=== PATIENT | female | born 1980 | race Caucasian/White ===

== ENCOUNTER → 2022-06-24 14:36 | Outpatient (BNVA) | payer MEDICAID, SELFPAY | PROVIDERS: Visit Provider Podiatrist Foot & Ankle Surgery | DX: M72.2 Plantar fascial fibromatosis (principal); E11.9 Type 2 diabetes mellitus without complications; Z79.84 Long term (current) use of oral hypoglycemic drugs | CPT/HCPCS: 73630; 99203 ==

== ENCOUNTER → 2022-09-27 13:04 | Outpatient (BNVA) | payer MEDICAID, SELFPAY | PROVIDERS: Visit Provider Podiatrist Foot & Ankle Surgery | DX: M72.2 Plantar fascial fibromatosis (principal); E11.9 Type 2 diabetes mellitus without complications; Z79.84 Long term (current) use of oral hypoglycemic drugs | CPT/HCPCS: 99213 ==

== ENCOUNTER → 2022-11-15 13:07 | Outpatient (BNVA) | payer MEDICAID, SELFPAY | PROVIDERS: Visit Provider Podiatrist Foot & Ankle Surgery | DX: M72.2 Plantar fascial fibromatosis (principal); E11.9 Type 2 diabetes mellitus without complications; Z79.84 Long term (current) use of oral hypoglycemic drugs | CPT/HCPCS: 99213 ==

== ENCOUNTER → 2022-11-17 08:21 | Outpatient (BNVA) | payer MEDICAID, SELFPAY | PROVIDERS: PCP Family Medicine; Referring Provider Family Medicine; Visit Provider Specialist | DX: R20.0 Anesthesia of skin (principal); R20.2 Paresthesia of skin | CPT/HCPCS: 95910; 95912 ==

== ENCOUNTER → 2022-12-27 15:25 | Outpatient (BNVA) | payer MEDICAID, SELFPAY | PROVIDERS: PCP Family Medicine; Visit Provider Podiatrist Foot & Ankle Surgery | DX: M72.2 Plantar fascial fibromatosis (principal) | CPT/HCPCS: 99213 ==

== ENCOUNTER 2023-02-09 17:12 | Emergency (ER) | payer MEDICAID, SELFPAY ==
--- NOTE | 2023-02-09 17:58 | XRR_ITS ---
PROCEDURE INFORMATION: Exam: XR Chest Exam date and time: 02/09/2023 6:44 PM Age: 42 years old Clinical indication: Fever TECHNIQUE: Imaging protocol: Radiologic exam of the chest. Views: 1 view. COMPARISON: No relevant prior studies available. FINDINGS: Lungs: Mild left basilar opacity or infiltrate. No consolidation. Pleural spaces: Unremarkable. No pleural effusion. No pneumothorax. Heart/Mediastinum: Unremarkable. No cardiomegaly. Bones/joints: Visualized osseous structures show no acute abnormality. XR/XR chest 1V portable [id number] IMPRESSION: Mild left basilar opacity or infiltrate suggesting mild left basilar pneumonia, for follow-up with treatment.
[2023-02-09 18:09] VITALS: BP 112/69; PULSE 75; RESP 18; TEMP 37; O2SAT 100; BMI 42.4
[2023-02-09 20:50] LABS: SARS Covid-2 Antigen positive (Negative)
[2023-02-09 20:54] VITALS: O2SAT 100
--- NOTE | 2023-02-09 20:59 | W.ED.COVID ---
HPI - COVID General: Chief Complaint: COVID symptoms Stated Complaint: fever, Exposed to covid Time Seen by Provider: 02/09/23 20:56 Source: patient Mode of arrival: ambulatory Limitations: no limitations History of Present Illness: 42-year-old female states that she is exposed someone with COVID and then yesterday started having some low-grade fevers chills and slight cough she had minimal shortness of breath she wears 2 L of oxygen at baseline since 2019 she is 100% on her 2 L she is in no distress here denies any pain. COVID 19 common symptoms: positive fever(s), chills, non-productive cough and dyspnea; negative body aches, headache(s), throat pain, nausea, vomiting or diarrhea COVID 19 other sytmptoms: negative chest pain COVID Results: SARS-CoV-2 Antigen (Rapid) positive (Negative) 02/09/23 20:20 Review of Systems Const: Reports: fever(s) and chills; Denies: body aches or change in appetite Eyes: Denies: blurry vision or eye discomfort ENMT: Denies: throat pain or dental pain Card: Denies: chest pain Resp: Reports: dyspnea and non-productive cough GI: Denies: abdominal pain, nausea, vomiting or diarrhea : Denies: dysuria Musc: Denies: neck pain or back pain Skin/Breast: Denies: rash Neuro: Denies: headache(s) Psych: Denies: depression Yony/Lymph: Denies: easy bruising All/Imm: Denies: urticaria PFSH ED PFSH: Social History Smoking and tobacco status: never smoked Alcohol intake: never Substance/Drug Use: never Physical Exam Const: COMMON NORMALS: no acute distress, patient oriented x3 and healthy appearing HENMT: COMMON NORMALS: normocephalic and atraumatic HEAD & SCALP: normocephalic and atraumatic Eye: COMMON NORMALS: conjunctivae normal CONJUNCTIVA: Yes conjunctivae normal Neck/C-Spine: COMMON NORMALS: supple Chest: COMMONS NORMALS: normal inspection of the chest and normal palpation of entire chest wall Resp: COMMON NORMALS: normal respiratory effort, No retractions, No use of accessory muscles and clear to auscultation bilaterally AUSCULTATION: clear to auscultation bilaterally Cardio: COMMON NORMALS: regular rate, regular rhythm and No murmurs present (Cardio) RATE: regular rate RHYTHM: regular rhythm GI: INSPECTION: Yes normal to inspection Extremity: COMMON NORMALS: normal to inspection and full ROM Neuro: COMMON NORMALS: patient oriented x3, moves all extremities and no focal motor deficits Psych: COMMON NORMALS: mental status grossly normal, Normal thought process present and cooperative THOUGHT PROCESS: Normal thought process present Skin: COMMON NORMALS: no rashes or lesions noted and no wounds GENERAL SKIN EXAM: no rashes or lesions noted Course Vital Signs: Vital signs: Vital Signs Temperature 98.6 F 02/09/23 18:09 Pulse Rate 75 02/09/23 18:09 Respiratory Rate 18 02/09/23 18:09 Blood Pressure 112/69 02/09/23 18:09 Pulse Oximetry 100 02/09/23 20:54 Oxygen Delivery Me thod Nasal Cannula 02/09/23 20:54 Oxygen Flow Rate 2 02/09/23 20:54 MDM - COVID Medical Decision Making Patient presents here with COVID-like symptoms and has had exposure her symptoms have been 1 day she is well-appearing here 100% on her baseline 2 L x-ray shows no acute abnormalities compared to baseline we will start her on Paxil did give her Decadron here. Lab Data Radiology Impressions Chest X-Ray 02/09/23 17:58 IMPRESSION: Mild left basilar opacity or infiltrate suggesting mild left basilar pneumonia, for follow-up with treatment. Laboratory Results SARS-CoV-2 Ag (Rapid) positive (Negative) 02/09/23 20:20 SARS-CoV-2 Antigen (Rapid) positive (Negative) 02/09/23 20:20 Discharge Plan Discharge Patient Disposition: Home Clinical Impression: COVID-19 Condition: Stable Prescriptions: New Paxlovid (EUA) 300 mg (150 mg x 2)-100 mg tablets,dose pack See Rx Instructions .ROUTE .COMPLEX Qty: 30 0RF Rx Instructions: take TWO 150 mg tablets of nirmatrelvir with ONE 100 mg tablet of ritonavir twice daily for 5 days No Action pregabalin 150 mg capsule PO levothyroxine [Euthyrox] 75 mcg tablet PO duloxetine 60 mg capsule,delayed release(DR/EC) PO prazosin 2 mg capsule PO lisinopril 10 mg tablet PO metformin 500 mg tablet PO furosemide 40 mg tablet PO phentermine 37.5 mg capsule PO doxycycline hyclate 100 mg capsule PO buprenorphine-naloxone 8-2 mg tablet, sublingual sublingual polyethylene glycol 3350 17 gram/dose powder PO albuterol sulfate [ProAir HFA] 90 mcg/actuation HFA aerosol inhaler inhalation methocarbamol 500 mg tablet PO cetirizine 10 mg tablet PO clotrimazole 1 % cream topical meloxicam 15 mg tablet See Rx Instructions .ROUTE .COMPLEX Qty: 30 0RF Dose Instruction: TAKE 1 TABLET BY MOUTH ONCE DAILY WITH FOOD FOR PLANTAR FASCIITIS Rx Instructions: TAKE 1 TABLET BY MOUTH ONCE DAILY WITH FOOD FOR PLANTAR FASCIITIS Discharge Orders: Discharge ED (Routine); Ordered 02/09/23 Ordered By: Melida Garcia Referrals: Fabrizio Nazario MD [Primary Care Provider] - 1-3 days Discharge Diet: Advance as tolerated Discharge Activity: Resume usual activity Patient Instructions: COVID-19 (Coronavirus Disease 2019) (ED) Coding Level of Care Code ED Inshore [employer] Officer for Luz Najera
[2023-02-09] MEDS: dexamethasone 10 mg/mL INJ IM (21:09)
[2023-02-09 21:14] VITALS: RESP 18
== END 2023-02-09 21:15 | disposition home or self-care (01) ==
PROVIDERS: Emergency Provider Emergency Medicine; PCP Family Medicine
DX: U07.1 COVID-19 (principal); Z79.84 Long term (current) use of oral hypoglycemic drugs
CPT/HCPCS: 71045; 87426; 96372; 99284; J1100

== ENCOUNTER → 2023-04-19 11:00 | Outpatient (BNVA) | payer MEDICAID, SELFPAY | PROVIDERS: PCP Family Medicine; Visit Provider Internal Medicine | DX: R20.0 Anesthesia of skin (principal); R20.2 Paresthesia of skin; M25.50 Pain in unspecified joint; R70.0 Elevated erythrocyte sedimentation rate | CPT/HCPCS: 36415; 73080; 73120; 80053; 82306; 82550; 82784; 83516; 84443; 85025; 85651; 86140; 86160; 86162; 86235; 86255; 86376; 86704; 86803; 87340; 87522; 99204 ==

== ENCOUNTER 2023-04-20 10:00 | Outpatient (CLI) | payer MEDICAID, SELFPAY ==
--- NOTE | 2023-04-20 10:13 | P.DIET_ITS ---
Reason for Visit: 31921 E66.01 Person Interviewed: Patient Medical History, Labs and Background: Recovering addict, been through a lot the past 10 yrs. Dealing with depression and anxiety. Height: 5 ft 5 in Weight: 249 lb BMI: 41.5 kg/m2 UBW: PT would like to be around 200 lbs, then 150 lbs. IBW: 125 lbs. Weight History: Dena said she has always been overweight. Her addiction journey took her down to 159 lbs, but she said she wasn't healthy at that weight. Concerns and Goals: She doesn't know what to do with her cravings, or how to lose weight. Sleep Hygiene: There is a sleep study scheduled for her. Right now she wakes up during the night and has nightmares. Physical Activity: Currently she is doing 10-15 minutes/day walking and on her glider. However she has plantar fascitis among other things affecting her feet and joints, making exercise difficult at times. GI Symptoms: Constipation Feeding Issues: Edentulous Other Feeding Issues: She lost all of her teeth so eats only soft foods. When asked why she skips meals she said she only eats when she is hungry. Also she said right now she craves ice cream and eats too much of it. At home she has a stove top, but the oven had mice in it and it doesn't work. Her budget is pretty tight. Food Allergies and Sensitivities: NKA 24 Hour Recall: Breakfast Time: 7:30 2 waffles, 2 sausage patties and glass milk Snack Time: Lunch Time: Nothing Snack Time: Dinner Time: 5:00 pm whole grain bread, honey ham, lb cheese and ibarra/onion, plus tostitos, plus milk Snack Time: 9:00 pm 1-2 cups ice cream Eating Out: Rarely eats out - cannot afford it. Soda vs Milk vs Water: She drinks 4-5 20 bottles of water, milk 1-2x/day and Dr. Martinez 0.5 can/day Additional Comments: Dena talked a lot about her addictions and the effect they have had on her life and her children. She mentioned some pills that were suppressing her appetite that she can no longer get or afford. It is hard to tell if she wants to make changes or wants to take a pill. However, she is bothered by her weight. Recommendations: Assessment: Dena is a recovering addict who says she cannot control her hunger and craves ice cream and Dr. Stratton. She described herself as Pre-Diabetes. On the internet she has found lots of information and mentioned being interested in the Mediterranean Diet. She knew nothing about a Diabetic Diet and though she wanted to meet with a Dietitian, she wasn't sure what they do! SHe would also like to lose weight. Diagnosis: Excessive energy intake r/t habits and patterns AEB BMI of 41.5 kg/m2. Intervention: We discussed eating regularly instead of just when she feels like it. I gave her handouts regarding a 1600 kcal diabetic diet with meal plans as a guideline to managing her CHO's so that she got some with protein and fat, consi stently throughout the day, so that she wouldn't be starving and binge on ice cream and so that she wouldn't have hypoglycemic episodes. Since she is already trying to walk outside or on her glider for 5-15 minutes/day, we talked about when she can trying 5-15 minutes 2x/day and she agreed. We or a snack, then talked about cutting back on Dr. Stratton and first eating a meal, then cutting back on ice cream. Because of her sleep issues I gave her a handout about the importance of sleep and recommended caffeine only in the morning and drinking milk or water or apple juice with her evening meds. Also we discussed no screen time 30-60 minutes before bed. Lastly we talked about wt loss happening slowly with change of habits, and that an initial 5-10% or 12-25 lbs would be a goal to start with. Monitoring and Evaluation: We discussed a second appointment or that she could use my contact information on the sheet where we wrote some goals. I also suggested circling or highlighting the handouts I gave her on the Diabetic Diet, meal plans, increasing fiber to combat constipation and sleep hygeine. Coding Level of Care Code Nutrition/Individ/Init 60 min Time Spent (min) 60
== END 2023-04-20 10:01 | disposition home or self-care (01) ==
LOC: DIET 10:01
PROVIDERS: PCP Family Medicine; Visit Provider Family Medicine
DX: Z71.3 Dietary counseling and surveillance (principal); E66.01 Morbid (severe) obesity due to excess calories; Z68.41 Body mass index [BMI] 40.0-44.9, adult
CPT/HCPCS: 97802

== ENCOUNTER → 2023-05-15 14:00 | Outpatient (BNVA) | payer MEDICAID, SELFPAY | PROVIDERS: PCP Family Medicine; Visit Provider Internal Medicine | DX: R76.8 Other specified abnormal immunological findings in serum (principal); R20.0 Anesthesia of skin; R20.2 Paresthesia of skin; M72.2 Plantar fascial fibromatosis; R70.0 Elevated erythrocyte sedimentation rate; R74.8 Abnormal levels of other serum enzymes; M25.521 Pain in right elbow | CPT/HCPCS: 36415; 82550; 84100; 85651; 86140; 99214 ==

== ENCOUNTER → 2023-05-22 14:59 | Outpatient (BNVA) | payer MEDICAID, SELFPAY | PROVIDERS: PCP Family Medicine; Visit Provider Psychiatry & Neurology Psychiatry | DX: F11.20 Opioid dependence, uncomplicated (principal); Z79.899 Other long term (current) drug therapy | CPT/HCPCS: 80307 ==

== ENCOUNTER → 2023-05-31 10:07 | Outpatient (BNVA) | payer MEDICAID, SELFPAY | PROVIDERS: PCP Family Medicine; Visit Provider Internal Medicine Pulmonary Disease | DX: R06.02 Shortness of breath (principal); Z87.891 Personal history of nicotine dependence | CPT/HCPCS: 99204 ==

== ENCOUNTER → 2023-06-05 13:16 | Outpatient (BNVA) | payer MEDICAID, SELFPAY | PROVIDERS: PCP Family Medicine; Visit Provider Psychiatry & Neurology Psychiatry | DX: Z79.899 Other long term (current) drug therapy (principal); F11.20 Opioid dependence, uncomplicated | CPT/HCPCS: 80307 ==

== ENCOUNTER → 2023-06-19 13:14 | Outpatient (BNVA) | payer MEDICAID, SELFPAY | PROVIDERS: PCP Family Medicine; Referring Provider Internal Medicine; Visit Provider Specialist | DX: M25.521 Pain in right elbow (principal); M25.522 Pain in left elbow | CPT/HCPCS: 73080; 99204 ==

== ENCOUNTER 2023-06-21 13:18 | Outpatient (CLI) | payer MEDICAID, SELFPAY ==
[2023-06-21 13:39] VITALS: PULSE 83; RESP 18; O2SAT 98
[2023-06-21] MEDS: albuterol 2.5 mg/3 mL Neb INHALATION (13:39)
[2023-06-21 13:43] VITALS: PULSE 85
== END 2023-06-21 13:19 | disposition home or self-care (01) ==
PROVIDERS: PCP Family Medicine; Visit Provider Internal Medicine Pulmonary Disease
DX: R06.02 Shortness of breath (principal)
CPT/HCPCS: 94060; 94618; 94726; 94729; J7613

== ENCOUNTER → 2023-07-03 13:27 | Outpatient (BNVA) | payer MEDICAID, SELFPAY | PROVIDERS: PCP Family Medicine; Visit Provider Psychiatry & Neurology Psychiatry | DX: Z79.899 Other long term (current) drug therapy (principal); F11.20 Opioid dependence, uncomplicated; F10.21 Alcohol dependence, in remission; F15.21 Other stimulant dependence, in remission; F43.12 Post-traumatic stress disorder, chronic; F33.2 Major depressive disorder, recurrent severe without psychotic features | CPT/HCPCS: 80307 ==

== ENCOUNTER → 2023-07-05 10:38 | Outpatient (BNVA) | payer MEDICAID, SELFPAY | PROVIDERS: PCP Family Medicine; Visit Provider Internal Medicine | DX: R76.8 Other specified abnormal immunological findings in serum (principal); R20.0 Anesthesia of skin; R20.2 Paresthesia of skin; E11.9 Type 2 diabetes mellitus without complications; M79.671 Pain in right foot; M79.672 Pain in left foot; M25.50 Pain in unspecified joint; R70.0 Elevated erythrocyte sedimentation rate; R74.8 Abnormal levels of other serum enzymes; M25.529 Pain in unspecified elbow | CPT/HCPCS: 36415; 82550; 82784; 83516; 85651; 86003; 86008; 86140; 86618; 86666; 86757; 99214 ==

== ENCOUNTER 2023-07-17 13:46 | Outpatient (CLI) | payer MEDICAID, SELFPAY ==
--- NOTE | 2023-07-17 13:45 | MR_ITS ---
WS: [id number] EXAMINATION: MR elbow RT wo con* [id number] ORDER DATE: 07/17/2023 1:54 PM COMPARISON: Radiograph 06/19/2023 and 04/19/2023 HISTORY: elbow pain CONTRAST: None. TECHNIQUE: Axial T1, axial T2 fat sat, coronal T1, coronal proton density fat sat, coronal STIR, sagi ttal proton density fat sat, and axial fat sat 3D performed. FINDINGS: Normal anatomic alignment. 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 No significant joint effusion. Distal triceps insertion is normal in appearance at the olecranon. Well-circumscribed bony ossicle along the dorsal olecranon unchanged compared to the prior radiograph likely represents an un united chronic fracture versus secondary ossification center. No edema in this location. Chondromalacia involving the capitellum and trochlea. Small amount of edema with degenerative change involving the capitellum at the radial articulation. No evidence of avascular necrosis. Radial head and neck are normal in appearance. Distal humerus is otherwise normal in appearance. Smal l amount of fluid and edema deep to the common extensor tendon and superficial to the lateral collate ral ligament. Small chronic appearing bony avulsion at the origin of the lateral collateral ligament at this location. No associated bony edema. Small chronic appearing ununited fracture of the coronoid process. No edema in this location. Normal common flexor tendon origin. IMPRESSION: 1. Small bony avulsion at the lateral humeral epicondyle at the lateral collateral ligament origin. Small amount of fluid and edema interposed between the common extensor tendon and lateral collateral ligament. 2. Small amount of fragmentation and edema involving the dorsal capitellum extending to the articula r surface. 3. Chronic appearing ununited tiny avulsion of the coronoid process. 4. Stable appearing tiny avulsion or secondary ossification center along the dorsal olecranon is unc hanged in appearance. No edema in this location. 5. No other acute findings.
== END 2023-07-17 13:47 | disposition home or self-care (01) ==
PROVIDERS: PCP Family Medicine; Visit Provider Specialist
DX: M25.521 Pain in right elbow (principal)
CPT/HCPCS: 73221

== ENCOUNTER 2023-08-08 20:00 | Outpatient (CLI) | payer MEDICAID, SELFPAY | END 2023-08-08 20:01 | disposition home or self-care (01) | LOC: SLEEP 08-09 05:48 | PROVIDERS: PCP Family Medicine; Visit Provider Family Medicine | DX: G47.10 Hypersomnia, unspecified (principal); G47.33 Obstructive sleep apnea (adult) (pediatric) | CPT/HCPCS: 95811 ==

== ENCOUNTER → 2023-08-09 13:55 | Outpatient (BNVA) | payer MEDICAID, SELFPAY | PROVIDERS: PCP Family Medicine; Visit Provider Specialist | DX: S52.024A Nondisplaced fracture of olecranon process without intraarticular extension of right ulna, initial encounter for closed fracture; X58.XXXA Exposure to other specified factors, initial encounter | CPT/HCPCS: 99213 ==

== ENCOUNTER → 2023-08-21 14:14 | Outpatient (BNVA) | payer MEDICAID, SELFPAY | PROVIDERS: PCP Family Medicine; Visit Provider Psychiatry & Neurology Psychiatry | DX: Z79.899 Other long term (current) drug therapy (principal); F11.20 Opioid dependence, uncomplicated; F10.21 Alcohol dependence, in remission; F15.21 Other stimulant dependence, in remission; F43.12 Post-traumatic stress disorder, chronic; F33.2 Major depressive disorder, recurrent severe without psychotic features | CPT/HCPCS: 80307 ==

== ENCOUNTER → 2023-09-07 13:49 | Outpatient (BNVA) | payer MEDICAID, SELFPAY | PROVIDERS: PCP Family Medicine; Visit Provider Internal Medicine Pulmonary Disease | DX: J44.89 Other specified chronic obstructive pulmonary disease (principal); Z87.891 Personal history of nicotine dependence; E66.01 Morbid (severe) obesity due to excess calories; J45.909 Unspecified asthma, uncomplicated; F15.11 Other stimulant abuse, in remission; Z68.41 Body mass index [BMI] 40.0-44.9, adult | CPT/HCPCS: 36415; 82785; 86003; 99214 ==

== ENCOUNTER → 2023-11-13 15:34 | Outpatient (BNVA) | payer MEDICAID, SELFPAY | PROVIDERS: PCP Family Medicine; Visit Provider Psychiatry & Neurology Psychiatry | DX: F11.20 Opioid dependence, uncomplicated (principal); F10.21 Alcohol dependence, in remission; F15.21 Other stimulant dependence, in remission; Z79.899 Other long term (current) drug therapy; F33.2 Major depressive disorder, recurrent severe without psychotic features; F43.12 Post-traumatic stress disorder, chronic | CPT/HCPCS: 80307 ==

== ENCOUNTER → 2024-02-12 16:05 | Outpatient (BNVA) | payer MEDICAID, SELFPAY | PROVIDERS: PCP Family Medicine; Visit Provider Psychiatry & Neurology Psychiatry | DX: F11.20 Opioid dependence, uncomplicated (principal); Z79.899 Other long term (current) drug therapy; F15.21 Other stimulant dependence, in remission; F10.21 Alcohol dependence, in remission | CPT/HCPCS: 80307 ==

== ENCOUNTER 2024-03-05 13:07 | Outpatient (CLI) | payer MEDICAID, SELFPAY ==
--- NOTE | 2024-03-05 13:10 | MM_ITS ---
WS: [id number] DIAGNOSTIC BILATERAL DIGITAL BREAST TOMOSYNTHESIS MAMMOGRAPHY WITH CAD LEFT breast ultrasound, limited HISTORY: Palpable mass LEFT breast. COMPARISON: None available. TECHNIQUE: Bilateral craniocaudad, mediolateral oblique, and mediolateral views are submitted with to mosynthesis and SM. Spot compression LEFT CC and MLO. Computer aided detection utilized. Breast composition: There are scattered areas of fibroglandular density. No new mass or abnormality n oted in the LEFT breast at the site of the palpable marker near 9:00. There are benign calcifications in each breast. LEFT breast ultrasound, limited. Ultrasound upper inner quadrant LEFT breast at the site of the palpable abnormality. No mass identifi ed. There is no distortion or shadowing. MM/[place] [id number] IMPRESSION: BI-RADS: 2-Benign FOLLOW UP: 1 Year Follow-up
== END 2024-03-05 13:08 | disposition home or self-care (01) ==
LOC: RAD 13:07
PROVIDERS: PCP Family Medicine; Visit Provider Family Medicine
DX: N63.20 Unspecified lump in the left breast, unspecified quadrant (principal); Z12.31 Encounter for screening mammogram for malignant neoplasm of breast; R92.323 Mammographic fibroglandular density, bilateral breasts; R92.1 Mammographic calcification found on diagnostic imaging of breast
CPT/HCPCS: 76642; 77062; G0279

== ENCOUNTER → 2024-04-23 08:32 | Outpatient (BNVA) | payer MEDICAID, SELFPAY | PROVIDERS: PCP Family Medicine; Visit Provider Podiatrist Foot & Ankle Surgery | DX: M72.2 Plantar fascial fibromatosis (principal); E11.9 Type 2 diabetes mellitus without complications; Z79.84 Long term (current) use of oral hypoglycemic drugs | CPT/HCPCS: 99213 ==

== ENCOUNTER 2024-04-30 12:44 | Outpatient (CLI) | payer MEDICAID, SELFPAY ==
[2024-04-30 12:55] VITALS: BMI 40.9
--- NOTE | 2024-04-30 12:59 | ECG_ITS ---
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
[2024-04-30 13:41] VITALS: BP 122/64; PULSE 62
== END 2024-04-30 12:45 | disposition home or self-care (01) ==
LOC: CDL 12:45
PROVIDERS: PCP Nurse Practitioner Family; Visit Provider Nurse Practitioner Family
DX: R07.9 Chest pain, unspecified (principal); R06.02 Shortness of breath
CPT/HCPCS: 93017

== ENCOUNTER → 2024-05-14 16:17 | Outpatient (BNVA) | payer OTHER, SELFPAY | PROVIDERS: PCP Nurse Practitioner Family; Visit Provider Psychiatry & Neurology Psychiatry | DX: Z79.899 Other long term (current) drug therapy (principal); F11.20 Opioid dependence, uncomplicated; F15.21 Other stimulant dependence, in remission; F10.21 Alcohol dependence, in remission | CPT/HCPCS: 80307 ==

== ENCOUNTER → 2024-06-27 14:09 | Outpatient (BNVA) | payer MEDICAID, SELFPAY | PROVIDERS: PCP Nurse Practitioner Family; Visit Provider Internal Medicine Cardiovascular Disease | DX: R07.89 Other chest pain (principal); R06.02 Shortness of breath; E11.9 Type 2 diabetes mellitus without complications; F33.2 Major depressive disorder, recurrent severe without psychotic features; F15.21 Other stimulant dependence, in remission; I10 Essential (primary) hypertension; Z87.891 Personal history of nicotine dependence | CPT/HCPCS: 99204 ==

== ENCOUNTER 2024-07-23 09:59 | Outpatient (CLI) | payer MEDICAID, SELFPAY ==
[2024-07-23 10:21] VITALS: BMI 41.4
--- NOTE | 2024-07-23 10:22 | NMCV_ITS ---
NM briana perf SPECT r/s* [id number] Dena Grider Age: 44 Gender: F : 1980 Exam Date: 07/23/2024 10:22 Ordering Phys: Nia Erickson MD ([email or web address]) Technologist: LEDA Castaneda Exam Location: [facility] Indications: cp STRESS TEST Please see separate stress test report in [facility] for full findings IMAGE PROTOCOL Rest/Stress 1 Lexiscan Day Radiopharmaceutical Dose (mCi) Administration Site Administered by Rest: Tc-99m 10.4 IV LEDA Rogers Sestamibi Stress:Tc-99m 33 IV LEDA Oneal Sestamibi Rest: 23-Jul-2024 60 Discovery 630 Stress: 23-Jul-2024 30 Discovery 630 0.4mg Lexiscan. Supine position only as patient was unable to lay prone. SPECT RESULTS Technical Quality: Good Raw Data Analysis: Normal Image Corrections: No attenuation or motion correction applied Summed Stress Score: 2 Summed Rest Score: 0 Summed Difference Score: 2 PERFUSION FINDINGS A very Small area of moderately decreased tracer uptake in the apical lateral region with some reversibility FUNCTIONAL RESULTS (calculated via Gated SPECT) Stress Image LV EF (%): 77 Stress EDV (mL):95 TID: 1.09 Stress ESV (mL):22 FUNCTIONAL FINDINGS: Segmental wall motion analysis revealing no gross wall motion abnormalities IMPRESSIONS 1. Myocardial perfusion imaging revealing a very small area of reversible defect in the apical lateral region, suggesting ischemia in the distribution of the left circumflex artery. 2. Normal LV ejection fraction of 77%. 3. LV wall motion analysis revealing no gross wall motion abnormalities. 4. Normal LV volume. No similar previous studies are available for comparison Dr Nia Erickson MD [facility] (Electronically Signed) Final Date: 23 July 2024 22:01 S
--- NOTE | 2024-07-23 10:22 | ECG_ITS ---
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 Interpretive Statements PROCEDURE: At the baseline, the EKG revealed normal sinus rhythm with a incomplete right bundle branch block.. The baseline heart was 65 bpm with a blood pressue of 139/84 mm of Hg Lexiscan was infused over a period of 20 seconds. A total of 0.4 milligrams of Lexiscan was infused. The stress phase was continued for a total of 5 minutes. Heart rate at the end of the stress phase was 77 bpm with a blood pressure 120/69 mm of Hg. The EKG at the peak infusion revealed no significant changes. Sestamibi was injected 20 seconds after the Lexiscan infusion. Heart rate at the end of the recovery phase was 78 bpm with a blood pressure of 125/72 mm of Hg. CONCLUSION: 1. No significant EKG changes with the LexiScan infusion 2. No LexiScan induced chest pain or cardiac arrhythmia 3. Normal blood pressure and heart rate response 4. Sestamibi/sestamibi perfusion scan pending; see separate report. Lung unchanged pre/post procedure; Intraprocedure shortess of breath; Symptoms resoled by discharge Electronically Signed On 07-28-2024 19:28:36 CDT by Nia Erickson M.D. [id number]
[2024-07-23] MEDS: regadenoson 0.4 Mg/5 ml Syringe IVP (11:47)
[2024-07-23 12:00] VITALS: BP 125/72; PULSE 78
== END 2024-07-23 10:00 | disposition home or self-care (01) ==
PROVIDERS: PCP Nurse Practitioner Family; Visit Provider Internal Medicine Cardiovascular Disease
DX: Z98.61 Coronary angioplasty status (principal); R06.02 Shortness of breath; R94.39 Abnormal result of other cardiovascular function study
CPT/HCPCS: 36415; 78452; 93017; 96374; A9500; J2785

== ENCOUNTER 2024-07-24 15:19 | Outpatient (CLI) | payer MEDICAID, SELFPAY | END 2024-07-24 15:20 | disposition home or self-care (01) | LOC: SLEEP 15:20 | PROVIDERS: PCP Nurse Practitioner Family; Visit Provider Nurse Practitioner Family | DX: G47.33 Obstructive sleep apnea (adult) (pediatric) (principal); G47.10 Hypersomnia, unspecified | CPT/HCPCS: 94762 ==

== ENCOUNTER 2024-08-01 14:28 | Outpatient (CLI) | payer MEDICAID, SELFPAY ==
--- NOTE | 2024-08-01 14:35 | XR_ITS ---
WS: [id number] Exam: XR thoracic spine 2V [id number] Date/Time of Exam: 08/01/2024 3:01 PM Reason For Exam: BACK AND NECK PAIN No fracture or malalignment. There is spondylosis. Slight dextroscoliosis. Normal paraspinal soft tis sues. XR/XR thoracic spine 2V [id number] IMPRESSION: 1. Spondylosis and slight dextroscoliosis. 2. No fracture or malalignment.
--- NOTE | 2024-08-01 14:35 | XR_ITS ---
WS: [id number] Exam: XR cervical spine 3V* [id number] Date/Time of Exam: 08/01/2024 3:01 PM Reason For Exam: BACK AND NECK PAIN No fracture or malalignment. Facet arthropathy at all levels. Mild spondylosis from C5-C7. Straighten ing and reversal of the normal cervical C curve. The odontoid is intact. XR/XR cervical spine 3V* [id number] IMPRESSION: 1. Moderate degenerative changes and straightening. No fracture or malalignment .
== END 2024-08-01 14:29 | disposition home or self-care (01) ==
LOC: RAD 14:31
PROVIDERS: PCP Nurse Practitioner Family; Visit Provider Nurse Practitioner Family
DX: M47.814 Spondylosis without myelopathy or radiculopathy, thoracic region (principal); M50.30 Other cervical disc degeneration, unspecified cervical region; M47.892 Other spondylosis, cervical region
CPT/HCPCS: 72040; 72070

== ENCOUNTER → 2024-08-13 09:45 | Outpatient (BNVA) | payer MEDICAID, SELFPAY | PROVIDERS: PCP Nurse Practitioner Family; Visit Provider Nurse Practitioner Family | DX: R06.02 Shortness of breath (principal); I10 Essential (primary) hypertension; R07.89 Other chest pain; R73.9 Hyperglycemia, unspecified | CPT/HCPCS: 99214 ==

== ENCOUNTER 2024-08-13 16:39 | Emergency (ER) | payer MEDICAID, SELFPAY ==
[2024-08-13 16:45] VITALS: BP 140/80; PULSE 75; TEMP 36.7; O2SAT 98
--- NOTE | 2024-08-13 16:54 | ECG_ITS ---
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 Measurements Intervals [place] Rate: 71 P: 40 IL: 155 QRS: 17 QRSD: 95 T: 19 QT: 393 QTc: 429 Interpretive Statements SINUS RHYTHM LOW QRS VOLTAGE IN PRECORDIAL LEADS [QRS DEFLECTION < 1.0 mV IN CHEST LEADS] POSSIBLE RIGHT VENTRICULAR CONDUCTION DELAY [RSR (QR) IN V1/V2] No previous ECG available for comparison Electronically Signed On 08-15-2024 22:01:54 PONY ROUGHER by Nia Erickson M.D. [id number]
--- NOTE | 2024-08-13 17:45 | XRR_ITS ---
PROCEDURE INFORMATION: Exam: XR Lumbosacral Spine Exam date and time: 08/13/2024 6:08 PM Age: 44 years old Clinical indication: Low back pain TECHNIQUE: Imaging protocol: Radiologic exam of the lumbosacral spine. Views: 2 or 3 views. COMPARISON: CR XR thoracic spine 2V [id number] 08/01/2024 3:05 PM FINDINGS: Bones/joints: Lower lumbar spine facet and disc degenerative changes. Otherwise preserved lumbar vertebral body heights and alignment. Soft tissues: Unremarkable. XR/XR lumbar spine 2-3V* [id number] IMPRESSION: As above.
--- NOTE | 2024-08-13 17:46 | XRR_ITS ---
PROCEDURE INFORMATION: Exam: XR Chest Exam date and time: 08/13/2024 6:06 PM Age: 44 years old Clinical indication: Pain; Chest pressure; Additional info: Back pain, cp TECHNIQUE: Imaging protocol: Radiologic exam of the chest. Views: 1 view. COMPARISON: CR (CHEST, ) 02/09/2023 6:44 PM FINDINGS: Lungs: There are some left basilar opacities. Pleural spaces: Unremarkable. No pleural effusion. No pneumothorax. Heart/Mediastinum: Mild cardiomegaly. Bones/joints: Unremarkable. XR/XR chest 1V portable [id number] IMPRESSION: As above.
[2024-08-13 17:52] VITALS: BP 105/73; PULSE 73; RESP 16; O2SAT 96
[2024-08-13 18:49] LABS: Basophils % 0.5 %; Eosinophils # 0.5 10^3/uL (0.0-0.8); Eosinophils % 6.3 %; Hematocrit 35.1 % (36-47); Lymphocytes # 2.6 10^3/uL (0.8-4.8); Mean Corpuscular HGB Conc 31.9 g/dL (30-55); Mean Corpuscular Volume 84.6 fl (85-98); Mean Platelet Volume 11.6 fL (7.4-10.4); Monocytes # 0.7 10^3/uL (0.2-0.9); Monocytes % 8.9 %; Neutrophils # 3.76 10^3/uL (1.8-7.7); Neutrophils % 50.2 %; Nucleated Red Blood Cells % 0 %; Platelet Count 160 10^3/cmm (157-399); Red Blood Count 4.15 10^6/uL (3.85-5.65); Red Cell Distribution Width 13.4 % (12.1-15.1)
[2024-08-13 18:50] LABS: Bilirubin Urine Negative (Negative); Blood Urine Negative (Negative); Glucose Urine UA Negative (Normal); Ketones Urine Negative (Negative); Leukocyte Esterase Urine Negative (Negative); Nitrate Urine Negative (Negative); Protein Urine Negative (Negative); Specific Gravity, Urine 1.018 (1.005-1.030); Urine Appearance Clear (CLEAR); Urine Color Yellow (Yellow); pH Urine 5.5 (5-7)
[2024-08-13 18:56] LABS: Add Urine Microscopic? YES; Bacteria Urine None Seen /hpf; Hyaline Casts Urine 0-4 /lpf; RBC Urine 0-2 /hpf (0-2); Squamous Epithelial Cell Urine 0-5 /hpf (0-5); WBC Urine 0-5 /hpf (0-5)
[2024-08-13 19:00] LABS: Troponin(5th) Baseline 8 ng/L (0-10)
--- NOTE | 2024-08-13 19:03 | ED_ITS ---
HPI - Back Pain/Injury 2 General: Chief Complaint: Back Pain/Injury Stated Complaint: back injury; randomly falling asleep Time Seen by Provider: 08/13/24 17:29 Source: patient Mode of arrival: ambulatory Limitations: no limitations History of Present Illness: Patient is a 44-year-old female who is presenting to the emergency department complaining of lower back pain beginning today. She is also stating that she has been randomly falling asleep, this has concerned her. She does have a history of obstructive sleep apnea, also notes that she currently has a couple of environmental things with her house that are being looked at that. Of note, she was seen at her cardiology office this morning for what has been chronic episodes of chest pain, she also recently underwent stress test in July that showed reversible left circumflex defect with ejection fraction of 77%. She did have episodes of chest pain this morning prior to presenting, she also has history of hypertension takes lisinopril. Currently is also taking Lasix for swelling and metformin for diabetes. She is scheduled for an angiography coming up, but notes that she is mainly concerned of the issues spontaneously going to sleep. She is not having chest pain at this time, no shortness of breath, no palpitations, no dizziness, no syncope, no other symptoms at this time. With her back pain, she notes that she has never had this before, denies any known injury other than she was lifting some boxes yesterday. Notes that the pain is across her lower back, worse with any movement. MD elicited complaint: back pain Onset (ago): hour(s) Timing: constant Severity: mild Location: lumbar spine, right lower back and left lower back Exacerbating factors: movement Relieving factors: immobilization Associated symptoms: Deny abdominal pain, chills, dysuria, fatigue, fever(s), nausea or vomiting Related Data Home Medications Medication Instructions Recorded Confirmed furosemide 40 mg tablet 40 mg PO DAILY 08/13/24 08/13/24 levothyroxine 75 mcg tablet 75 mcg PO DAILY 08/13/24 08/13/24 (Euthyrox) lisinopril 10 mg tablet 10 mg PO DAILY 08/13/24 08/13/24 metformin 500 mg tablet 500 mg PO DAILY 08/13/24 08/13/24 methocarbamol 500 mg tablet 500 mg PO BID 08/13/24 08/13/24 polyethylene glycol 3350 17 g PO DAILY PRN 08/13/24 08/13/24 gram/dose oral powder pregabalin 150 mg capsule 150 mg PO TID 08/13/24 08/13/24 Previous Rx's Medication Instructions Recorded fluticasone 100 mcg-salmeterol 50 1 inh inhalation BID #60 ea 05/31/23 mcg/dose blistr powdr for inhalation (Advair Diskus) Xopenex HFA 45 mcg/actuation 2 inh inhalation Q6H #15 grams 09/05/23 aerosol inhaler (levalbuterol tartrate) meloxicam 15 mg tablet See Rx Instructions .Route 10/31/23 .COMPLEX #30 tabs buprenorphine 8 mg-naloxone 2 mg 1 film sublingual BID #60 ea 08/13/24 sublingual film duloxetine 60 mg capsule,delayed 120 mg (2 x 60 mg) PO DAILY #60 08/13/24 release caps Allergies Allergy/AdvReac Type Severity Reaction Status Date / Time No Known Allergies Allergy Verified 08/13/24 16:52 Review of Systems 2 General: Reports: 10 or more systems reviewed and unremarkable except in HPI and below Const: Reports: other ( Spontaneously falling asleep ); Denies: fever(s), chills or fatigue Eyes: Denies: change in vision ENMT: Denies: throat pain, ear or mastoid pain or nasal discharge Card: Denies: chest pain, palpitations, swelling of feet/ankles or lightheadedness Resp: Denies: dyspnea, productive cough or wheezing GI: Denies: abdominal pain, nausea, vomiting, diarrhea or constipation : Denies: flank pain, difficulty voiding, dysuria or urinary frequency Musc: Reports: back pain; Denies: neck pain or joint pain Skin/Breast: Denies: rash Neuro: Denies: headache(s), numbness in extremities or weakness in extremities PFSH ED 2 PFSH: Medical History Hepatitis C antibody positive in blood Psychiatric care Social History Smoking and tobacco/nicotine status: former use of tobacco/nicotine Quit status (tobacco/nicotine): has quit using Year quit tobacco: 2019 Former quit date comment: 1 ppd X 24 years Alcohol intake: never Substance/Drug Use: former Lives independently: Yes Household members: children Housing: House Marital status: Single Number of children: 1 Number of grandchildren: 2 service: No Current occupational status: disabled Crystal/Mormon: Evangelical Physical Exam 2 Const: COMMON NORMALS: no acute distress, patient oriented x3 and no limitations GENERAL APPEARANCE: cooperative, comfortable and well developed ORIENTATION/CONSCIOUSNESS: Yes awake, Yes oriented to person, Yes oriented to place and Yes oriented to time HENMT: COMMON NORMALS: normocephalic, atraumatic and hearing grossly normal bilaterally HEAD & SCALP: normocephalic and atraumatic Eye: COMMON NORMALS: Equal, round and reactive pupils present, EOMs intact bilaterally and conjunctivae normal CONJUNCTIVA: Yes conjunctivae normal P UPIL: Yes Equal, round and reactive pupils present Neck/C-Spine: COMMON NORMALS: full ROM, supple and no JVD Resp: COMMON NORMALS: normal respiratory effort, No retractions, No use of accessory muscles and clear to auscultation bilaterally AUSCULTATION: clear to auscultation bilaterally Cardio: COMMON NORMALS: no JVD, regular rate, regular rhythm, No clicks present (Cardio), No murmurs present (Cardio) and No rub (Cardio) RATE: r egular rate RHYTHM: regular rhythm GI: COMMON NORMALS: Normal to inspection, nondistended, normoactive bowel sounds present, Soft to palpation and non-tender AUSCULTATION: Yes normoactive bowel sounds PALPATION: Yes Soft to palpation RECTAL EXAM: d eferred Back/Pelvis: COMMON NORMALS: thoracic and lumbar spine normal to inspection and no thoracic nor lumbar tenderness OTHER: Pain with range of motion of the lower back, worse with lateral rotation. There were no signs of trauma or deformity, no significant reproducible tenderness to palpation of the lumbar spine or paralumbar muscles. Extremity: COMMON NORMALS: normal to inspection, full ROM and capillary refill normal Neuro: COMMON NORMALS: patient oriented x3, CN's II-XII intact bilaterally, moves all extremities, no focal motor deficits and no sensory deficits noted SENSORIUM/ORIENTATION: Yes oriented to person, Yes oriented to place and Yes oriented to time Psych: COMMON NORMALS: mental status grossly normal and Normal thought process present THOUGHT PROCESS: Normal thought process present Skin: COMMON NORMALS: no rashes or lesions noted GENERAL SKIN EXAM: no rashes or lesions noted Course 2 Vital Signs: Vital signs: Vital Signs Temperature 98.0 F 08/13/24 16:45 Pulse Rate 67 08/13/24 19:23 Respiratory Rate 16 08/13/24 19:23 Blood Pressure 139/77 08/13/24 19:23 Pulse Oximetry 95 08/13/24 19:23 Oxygen Delivery Me thod Room Air 08/13/24 19:23 MDM - Back Pain/Injury Medical Decision Making Patient seen here for low back pain and daytime sleepiness. I do believe that this is related to her sleep apnea and encouraged her to follow-up with primary care with this. Her lab work today was normal including negative troponin negative BNP, negative chest x-ray, negative EKG, and negative rest of her lab workup. She has a history of anemia though here her hemoglobin was noted to be higher than previous. Her back pain was evaluated with an x-ray did show degenerative changes and I think that this is chronic and also encouraged her to follow-up with primary care. She response taking that she is currently trying to get in with Ortho/spine surgery for this. She has had normal vitals throughout ED stay, and will continue follow-up with cardiology for plan for coronary angiography. All other questions and concerns addressed. Labs 08/13/24 18:32 08/13/24 18:32 Radiology Impressions Lumbar Spine X-Ray 08/13/24 17:45 IMPRESSION: As above. Chest X-Ray 08/13/24 17:46 IMPRESSION: As above. Laboratory Results WBC 7.50 10^3/uL (3.29-11.43) 08/13/24 18:32 RBC 4.15 10^6/uL (3.85-5.65) 08/13/24 18:32 Hgb 11.20 g/dL (11.27-16.99) L 08/13/24 18:32 Hct 35.1 % (36-47) L 08/13/24 18:32 MCV 84.6 fl (85-98) L 08/13/24 18:32 MCH 27.0 pg (27-33) 08/13/24 18:32 MCHC 31.9 g/dL (30-55) 08/13/24 18:32 RDW 13.4 % (12.1-15.1) 08/13/24 18:32 Plt Count 160 10^3/cmm (157-399) 08/13/24 18: MPV 11.6 fL (7.4-10.4) H 08/13/24 18:32 Neut % (Auto) 50.2 % 08/13/24 18:32 Lymph % (Auto) 34.0 % 08/13/24 18:32 [place] % (Auto) 8.9 % 08/13/24 18: Eos % (Auto) 6.3 % 08/13/24 18:32 Baso % (Auto) 0.5 % 08/13/24 18: Neut # (Auto) 3.76 10^3/uL (1.8-7.7) 08/13/24 18: Lymph # (Auto) 2.6 10^3/uL (0.8-4.8) 08/13/24 18: [place] # (Auto) 0.7 10^3/uL (0.2-0.9) 08/13/24 18: Eos # (Auto) 0.5 10^3/uL (0.0-0.8) 08/13/24 18: Baso # (Auto) 0.0 10^3/uL (0.0-0.1) 08/13/24 18: Nucleated RBC % (auto) 0 % 08/13/24 18: Nucleated RBCs # 0.0 /100WBC 08/13/24 18:32 Sodium 142 mmol/L (136-145) 08/13/24 18:32 Potassium 3.8 mmol/L (3.5-5.1) 08/13/24 18: Chloride 99 mmol/L (98-107) 08/13/24 18:32 Carbon Dioxide 31 mmol/L (22-29) H 08/13/24 18:32 Anion Gap 15.8 (5-19) 08/13/24 18:32 BUN 20 mg/dL (6-20) 08/13/24 18: Creatinine 0.7 mg/dL (0.5-0.9) 08/13/24 18:32 GFR Calculation 91.3 mL/min (90-130) 08/13/24 18:32 Glucose 119 mg/dL (65-115) H 08/13/24 18:32 Calculated Osmolality 298 mOsm/kg (285-295) H 08/13/24 18:32 Calcium 8.5 mg/dL (8.5-10.5) 08/13/24 18:32 Total Bilirubin 0.3 mg/dL (0.15-1.2) 08/13/24 18:32 AST 24 U/L (0-32) 08/13/24 18:32 ALT 40 U/L (0-33) H 08/13/24 18:32 Alkaline Phosphatase 91 U/L (35-105) 08/13/24 18:32 Troponin T Baseline 8 ng/L (0-10) 08/13/24 18:32 NT-Pro-B Natriuret Pep 136 pg/mL (0-125) H 08/13/24 18:32 Total Protein 5.8 g/dL (6.6-8.7) L 08/13/24 18:32 Albumin 4.1 g/dL (3.5-5.2) 08/13/24 18:32 Globulin 1.7 g/dL (1.3-4.6) 08/13/24 18:32 TSH 1.16 uIU/mL (0.27-4.20) 08/13/24 18:32 Urine Color Yellow (Yellow) 08/13/24 18:26 Urine Appearance Clear (CLEAR) 08/13/24 18:26 Urine pH 5.5 (5-7) 08/13/24 18:26 Ur Specific [place] 1.018 (1.005-1.030) 08/13/24 18:26 Urine Protein Negative (Negative) 08/13/24 18:26 Urine Glucose (UA) Negative (Normal) 08/13/24 18:26 Urine Ketones Negative (Negative) 08/13/24 18:26 Urine Blood Negative (Negative) 08/13/24 18:26 Urine Nitrate Negative (Negative) 08/13/24 18:26 Urine Bilirubin Negative (Negative) 08/13/24 18: Urine Urobilinogen 1.0 mg/dL (Negative) 08/13/24 18:26 Ur Leukocyte Esterase Negative (Negative) 08/13/24 18:26 Urine RBC 0-2 /hpf (0-2) 08/13/24 18:26 Urine WBC 0-5 /hpf (0-5) 11/05/24 18:26 Ur Squamous Epith Cells 0-5 /hpf (0-5) 08/13/24 18:26 Amorphous Sediment Not Reportable 08/13/24 18:26 Urine Bacteria None seen /hpf (NONE) 08/13/24 18:26 Hyaline Casts 0-4 /lpf H 08/13/24 18:26 All radiology interpretation(s) finalized by discharge Discharge Plan Discharge Patient Disposition: Home Clinical Impression: History of obstructive sleep apnea Chronic low back pain Qualifiers: Back pain laterality: unspecified Sciatica presence: without sciatica Qualified Code(s): M54.50 - Low back pain, unspecified Condition: Stable Prescriptions: No Action buprenorphine-naloxone 8-2 mg film 1 film sublingual BID Qty: 60 2RF duloxetine 60 mg capsule,delayed release(DR/EC) 120 mg PO DAILY Qty: 60 2RF lisinopril 10 mg tablet 10 mg PO DAILY furosemide 40 mg tablet 40 mg PO DAILY levothyroxine [Euthyrox] 75 mcg tablet 75 mcg PO DAILY metformin 500 mg tablet 500 mg PO DAILY methocarbamol 500 mg tablet 500 mg PO BID pregabalin 150 mg capsule 150 mg PO TID polyethylene glycol 3350 17 gram/dose powder PO DAILY PRN fluticasone propion-salmeterol [Advair Diskus] 100-50 mcg/dose blister with device 1 inh inhalation BID Qty: 60 6RF levalbuterol tartrate [Xopenex HFA] 45 mcg/actuation HFA aerosol inhaler 2 inh inhalation Q6H Qty: 15 6RF meloxicam 15 mg tablet See Rx Instructions .ROUTE .COMPLEX Qty: 30 0RF Dose Instruction: Take 1 tablet by mouth once daily with food Rx Instructions: Take 1 tablet by mouth once daily with food Discharge Orders: Discharge ED (Routine); Ordered 08/13/24 Ordered By: Pramod Mann Referrals: Eliz Bryant FNP [Primary Care Provider] - Patient Instructions: Back Pain (ED), Obstructive Sleep Apnea Activity Restrictions/Additional Instructions: Ice/heat and take Tylenol and ibuprofen for your back pain. Continue following up with cardiology and plan for coronary angiography. Also follow-up with your primary care to discuss your sleep apnea any further management. Return with any new or worsening. Coding Level of Care Code ED Health Care Specialist for Luz Najera
[2024-08-13 19:09] LABS: Alanine Aminotransferase 40 U/L (0-33); Albumin Level 4.1 g/dL (3.5-5.2); Alkaline Phosphatase 91 U/L (35-105); Anion Gap 15.8 (5-19); Aspartate Amino Transferase 24 U/L (0-32); Blood Urea Nitrogen 20 mg/dL (6-20); Calcium 8.5 mg/dL (8.5-10.5); Carbon Dioxide 31 mmol/L (22-29); Chloride 99 mmol/L (98-107); Globulin 1.7 g/dL (1.3-4.6); Glomerular Filtration Rate 91.3 mL/min (90-130); Glucose 119 mg/dL (65-115); NT Pro B Type Natriuretic Pept 136 pg/mL (0-125); Osmolality Calculated 298 mOsm/kg (285-295); Potassium 3.8 mmol/L (3.5-5.1); Sodium 142 mmol/L (136-145); Thyroid Stimulating Hormone 1.16 uIU/mL (0.27-4.20); Total Bilirubin 0.3 mg/dL (0.15-1.2); Total Protein 5.8 g/dL (6.6-8.7)
[2024-08-13 19:23] VITALS: BP 139/77; PULSE 67; RESP 16; O2SAT 95
[2024-08-13 19:49] VITALS: BP 141/82; PULSE 79; RESP 16; O2SAT 96
== END 2024-08-13 19:51 | disposition home or self-care (01) ==
PROVIDERS: Emergency Provider Physician Assistant; PCP Nurse Practitioner Family
DX: M54.50 Low back pain, unspecified (principal); Z79.84 Long term (current) use of oral hypoglycemic drugs; Z87.891 Personal history of nicotine dependence; E11.9 Type 2 diabetes mellitus without complications; G47.33 Obstructive sleep apnea (adult) (pediatric)
CPT/HCPCS: 71045; 72100; 80053; 80307; 81001; 83880; 84443; 84484; 85025; 93005; 99285

== ENCOUNTER → 2024-08-27 15:35 | Outpatient (BNVA) | payer MEDICAID, SELFPAY | PROVIDERS: PCP Nurse Practitioner Family; Visit Provider Orthopaedic Surgery | DX: M54.2 Cervicalgia (principal); M54.9 Dorsalgia, unspecified | CPT/HCPCS: 72050; 72110; 99204 ==

== ENCOUNTER 2024-08-29 05:54 | Outpatient (CLI) | payer MEDICAID, SELFPAY ==
[2024-08-29] VITALS (31 sets, daily range): BP systolic 107–151; BP diastolic 61–111; PULSE 70–91; RESP 12–18; TEMP 36.7; O2SAT 92–97; BMI 41.8
[2024-08-29] MEDS: diphenhydrAMINE 50 mg Capsule PO (06:00)
[2024-08-29] MEDS: aspirin 325 mg Tablet PO (06:00)
[2024-08-29 06:42] LABS: Basophils # 0.1 10^3/uL (0.0-0.1); Basophils % 0.7 %; Eosinophils # 0.4 10^3/uL (0.0-0.8); Eosinophils % 4.4 %; Hematocrit 37.2 % (36-47); Lymphocytes # 3.1 10^3/uL (0.8-4.8); Lymphocytes % 34.4 %; Mean Corpuscular HGB Conc 31.7 g/dL (30-55); Mean Corpuscular Hemoglobin 26.6 pg (27-33); Mean Corpuscular Volume 83.8 fl (85-98); Mean Platelet Volume 11.7 fL (7.4-10.4); Monocytes # 0.7 10^3/uL (0.2-0.9); Monocytes % 7.3 %; Neutrophils # 4.82 10^3/uL (1.8-7.7); Nucleated Red Blood Cells % 0 %; Platelet Count 173 10^3/cmm (157-399); Red Blood Count 4.44 10^6/uL (3.85-5.65); Red Cell Distribution Width 13.2 % (12.1-15.1); White Blood Count 9.09 10^3/uL (3.29-11.43)
--- NOTE | 2024-08-29 06:48 | P.HPUD_ITS ---
Surgery/Procedure H&P Update DATE OF PROCEDURE: August 29, 2024 DATE H&P PERFORMED: 08/13/24 H&P UPDATE INFORMATION: I have reviewed H&P completed within last 30 days, I have examined patient prior to procedure and No changes to prior documentation PREOP DIAGNOSIS: Possible ASHD PRIMARY INDICATION FOR PROCEDURE: Patient with multiple risk factors for coronary artery disease, chest pain and abnormal Myocardial perfusion imaging PLANNED PROCEDURE: Operation Date: 08/29/24 07:00 Proposed Procedures p Cardiac Catheterization - [facility] w/wo LV and Coros(Left) - Nia Erickson MD PATIENT REASSESSED PRIOR TO SEDATION, WITH NO CHANGE NOTED: Yes PHYSICAL EXAM: alert, oriented x 3, clear to auscultation bilaterally and regular rate & rhythm AIRWAY EVAL/ANESTHESIA PLAN: see other exam findings, ASA III, Monitored Anesthesia, Local Anesthesia, Risks, benefits & alternatives of sedation and/or procedure discussed and Patient agrees to continue as planned
[2024-08-29 06:49] LABS: Anion Gap 14.7 (5-19); Blood Urea Nitrogen 23 mg/dL (6-20); Calcium 9.4 mg/dL (8.5-10.5); Carbon Dioxide 31 mmol/L (22-29); Chloride 99 mmol/L (98-107); Glomerular Filtration Rate 91.3 mL/min (90-130); Glucose 114 mg/dL (65-115); Osmolality Calculated 297 mOsm/kg (285-295); Potassium 3.7 mmol/L (3.5-5.1); Sodium 141 mmol/L (136-145)
--- NOTE | 2024-08-29 07:00 | XACV_ITS ---
Ht: 165 cm Wt: 114 kg BSA: 2.34 m2 Gender: Female : 1980 Any Known Allergies: No known allergies Exam Priority: Routine Indication(s): - Chest pain - Abnormal stress perfusion study Procedure(s): Procedure Description: Diagnostic procedure Procedure Description: Left Heart Catheterization Procedure Description: Left ventriculography Procedure Description: Coronary Angiography Dre WALDRON; Diagnostic Cath Status: Elective Diagnostic Findings * Left main is relatively short but he caliber was little which bifurcates to the left anterior descending and circumflex artery. No significant lesions are noted. * The left anterior descending artery is a medium caliber vessel which appears to wraparound the LV apex minimally. It gives of a high diagonal branch of equal caliber with no significant or lesions. * The left circumflex artery is a medium caliber vessel which also was found to have no significant stenotic lesions. The second obtuse marginal branch is a relatively large vessel appears to be a continuation of the circumflex proper. No severe lesions were noted. The AV groove branch is elongated slender vessel with no significant lesions. * The right coronary artery is a medium caliber dominant vessel with no significant lesions. Conclusions 1. 44-year-old white female with history of hypertension, diabetes and dyslipidemia, presenting with complaints of recurrent episodes of chest pain. Myocardial perfusion imaging revealed a small area of ischemia in the distribution of the circumflex artery. Because of the patient's ongoing increasing episodes of chest pains, in order to further evaluate the coronary status, a cardiac catheterization was recommended. Patient underwent left heart catheterization with left and right coronary angiogram and LV angiogram today. The findings are as follows.. 2. No significant obstructive coronary disease. Extremely short left main artery and dominant right coronary artery. LVEDP of 15 mmHg. LV ejection fraction 50%. Diagnostic RX Recommendation: medical therapy and/or counseling LV EDP: 15 mmHg Ventriculography Ejection Fraction: 50.0 % Left Ventriculography Findings: * LV gram was performed in the DSOUZA projection. The LV cavity appeared to be of normal size. LV ejection fraction was around 50%. No significant wall motion normalities are noted. No filling defects. No significant mitral valve prolapse or mitral regurgitation. Pressures Phase:Rest AO : / ( -4 ) @ 7:41:00 AM 117 / 78 ( 94 ) @ 7:43:00 AM 131 / 81 ( 104 ) @ 7:55:00 AM 133 / 82 ( 106 ) @ 7:55:00 AM LV : 139 / -7 / 15 @ 7:54:00 AM 144 / -2 / 21 @ 7:55:00 AM 146 / -3 / 22 @ 7:55:00 AM Valves Phase:DefaultPhase AV : 15.0 @ 8:03:43 AM AV Mean Gradient: 12.0 @ 8:03:43 AM Clinical Evaluation EBL: 5mL-10mL Procedural Details Procedure Consent Obtained. Admit Source: Out Patient. Pre-Procedure Time Out. Identified patient by full name and date of as verbalized by the patient/guarantor. Does the consent match the physician's order: Yes. Accurate & Complete Informed Consent: Yes. Inpatient/Outpatient History & Physical on Chart: Yes. If H&P is completed, is and addenduem needed: No; If yes, is the addendum complete: N/A. Visualize and Verify Site with Patient/Guarantor: N/A. Relevant Radiology Images available: N/A. The risks, benefits, and alternatives of sedation and/or procedure were discussed by physician. The patient agrees to continue. Procedure started. Physician notified. Physician arrived. [facility] Clinical Fraility Score: 3: Managing Well. Keg Varnisher Indications: Chest Pain; Abnormal stress test. Chest Pain Symptom Assessment: Typical Angina Symptoms. Cardiovascular Instability: No. Correct patient, site and procedure confirmed by cath team. Current diagnosis: Chest Pain; Abnormal stress test; possible cad. PERRLA. Strong, equal hand guest services director bilaterally. Lungs clear x 5 lobes. IV Site on Arrival: 20 gauge in the left forearm. IV Fluids: 0.9% NaCl at KVO. 0 mL infused prior to cleaner laboratory equipment. Pre Procedural Pulses: bilateral dorsalis pedis was 2+. Pre Procedural Pulses: bilateral posterior tibial was 2+. Pre Procedural Pulses: bilateral radial was 1+. Oxygen started at 32liters/min via nasal canula. right groin was prepped with chloroprep then draped in the usual sterile fashion. right radial was prepped with chloroprep then draped in the usual sterile fashion. Baseline sample Acquired. HR: 79 BPM. Baseline sample Acquired. HR: 78 BPM. Family updated by MD prior to the start of the procedure. Physician scrubbed in. Immediate Pre-Procedure Time Out. Correct Patient: Yes; Correct Procedure: Yes; Correct Site: Yes; Correct Patient Position: Yes; Correct Supplies: Yes; Dried Flammable Prep: Yes; Blood Products Available: N/A;. Lidocaine 1% infiltrated to the right radial. Current Diagnosis : Chest Pain. Arterial access obtained. A 5 polish Camilo catheter in over wire. Multiple views taken of left coronary artery. Catheter redirected to the RCA. Unable to cannulate the RCA. Catheter removed over the exchange wire. A 5 polish JR4 catheter in over wire. Multiple views taken of right coronary artery. Catheter removed over the exchange wire. A 5 polish Angled Pig catheter in over wire. EDP Sample taken: LV 139/-8,15; HR: 80 BPM; SpO2: 97%. LV gram performed in DSOUZA @ 10 mL/second for a total of 30 mL. Patient EF: Normal. EDP Sample taken: LV 144/-3,21; HR: 80 BPM; SpO2: 97%. Pullback taken: LV 146/-4,22; AO 131/81(104); Mean: 12mmHg, Peak to Peak: 15mmHg, SEP: 17sec/min; HR: 79 BPM; SpO2: 99%. Catheter removed over the wire. Physician review of films. Physician Scrubbed out. A TR Band was successful obtaining hemostatsis at the Right Radial artery insertion site. TR band placed. Hemostasis obtained. PERRLA. Strong, equal hand guest services director bilaterally. No VTE prophylaxis required. Medication's Wasted: Lidocaine 1% = 18 mL. Medication's Wasted: Nitro = 49.7 mg. Medication's Wasted: Heparin = 1000 units. Total IV fluids: 250 mL. Fluoro: 6:06. Contrast type used: Omnipaque 300 mg/mL, 150 mL bottle. [id number]. Post-op diagnosis: Normal Coronaries. Complications: None. Estimated blood loss: 5mL-10mL. Responsiveness - Normal response to verbal stimuli; alert and oriented, PERRLA. Airway - Unaffected, no intervention required; spontaneous ventilation. Circulation: W/N/L, pulses unchanged. Nausea/Vomiting: No. Procedure completed. Patient transferred by wheelchair to CPRU. Vital chart was stopped. Access Site Site: Right Radial artery Sheath Size: 6 Fr Hemostasis Method: TR Band Hemostasis Success: Successful Procedure Medications Start: 7:25 AM Stop: 7:25 AM Medication: Versed 1 mg and Fentanyl 25 mcg Amount: 1 Route: I.V. Start: 7:27 AM Stop: 7:27 AM Medication: 0.9% Saline Amount: 250 ml Route: I.V. bolus Start: 7:30 AM Stop: 7:30 AM Medication: Versed 1 mg and Fentanyl 25 mcg Amount: 1 Route: I.V. Start: 7:39 AM Stop: 7:39 AM Medication: Verapamil Amount: 5 mg Route: I.A. Start: 7:39 AM Stop: 7:39 AM Medication: Nitrogylcerin Amount: 200 mcg Route: I.A. Start: 7:41 AM Stop: 7:41 AM Medication: Versed 1 mg and Fentanyl 25 mcg Amount: 1 Route: I.V. Start: 7:42 AM Stop: 7:42 AM Medication: Heparin Amount: 5000 units Route: I.V. Start: 7:47 AM Stop: 7:47 AM Medication: Nitrogylcerin Amount: 100 mcg Route: I.A. Start: 7:48 AM Stop: 7:48 AM Medication: Versed 1 mg and Fentanyl 25 mcg Amount: 1 Route: I.V. I, the attending physician, have reviewed and verified all procedure medications. Yes, all medications given per verbal order History/Risk Factors Hypertension: Yes Obesity: Yes Tobacco Use: Former Report Signatures Finalized by Dr Nia Erickson MD [facility] on 08/29/2024 10:15 PM
--- NOTE | 2024-08-29 10:27 | PC.NURSE ---
TR band off @ 1025; no hematoma or bleeding noted. Radial pulse 1+ palpable
== END 2024-08-29 11:31 | disposition home or self-care (01) ==
PROVIDERS: PCP Nurse Practitioner Family; Visit Provider Internal Medicine Cardiovascular Disease
DX: R07.89 Other chest pain (principal); I10 Essential (primary) hypertension; E66.9 Obesity, unspecified; Z68.41 Body mass index [BMI] 40.0-44.9, adult; Z87.891 Personal history of nicotine dependence; E11.9 Type 2 diabetes mellitus without complications; E78.5 Hyperlipidemia, unspecified; E03.9 Hypothyroidism, unspecified
CPT/HCPCS: 36415; 80048; 85025; 93458; 96365; 96374; 99152; 99153; C1769; C1887; C1894; J1644; J2250; J3010; J3490; J7030; Q0163; Q9967

== ENCOUNTER → 2024-09-10 14:54 | Outpatient (BNVA) | payer MEDICAID, SELFPAY | PROVIDERS: PCP Nurse Practitioner Family; Visit Provider Nurse Practitioner Family | DX: I10 Essential (primary) hypertension (principal); R07.89 Other chest pain; Z87.820 Personal history of traumatic brain injury; J44.9 Chronic obstructive pulmonary disease, unspecified; Z87.891 Personal history of nicotine dependence | CPT/HCPCS: 36415; 80048; 99214 ==

== ENCOUNTER 2024-09-26 12:00 | Outpatient (CLI) | payer MEDICAID, SELFPAY ==
--- NOTE | 2024-09-26 | MM_ITS ---
WS: [id number] LEFT 3D TOMOSYNTHESIS DIGITAL MAMMOGRAPHY WITH CAD CLINICAL INFORMATION: LEFT BREAST LUMP HISTORY: LEFT breast lump COMPARISON: 03/05/2024 TECHNIQUE: 3 views of the left breast were obtained. FINDINGS: Scattered fibroglandular densities of the left breast. Palpable marker LEFT breast. No suspicious und erlying parenchymal abnormalities. Ultrasound is pending. Skin calcifications. ULTRASOUND BREAST LEFT TECHNIQUE: Ultrasound left breast focused area of concern. CLINICAL INFORMATION: LEFT BREAST LUMP COMPARISON: 03/05/2024 FINDINGS: Ultrasound LEFT breast 10 o'clock position 5 cm from the nipple in the area of concern. No suspicious underlying cystic or solid lesions. No suspicious lesions to target for biopsy. Recommend return to annual screening mammography. MM/MM diag LT tomosynthesis [id number] IMPRESSION: DENSITY: There are scattered areas of fibroglandular density. BI-RADS: 2 - Benign. FOLLOW UP: 1 Year Follow-up Recommend return to annual screening mammography.
--- NOTE | 2024-09-26 12:09 | US_ITS ---
WS: [id number] LEFT 3D TOMOSYNTHESIS DIGITAL MAMMOGRAPHY WITH CAD CLINICAL INFORMATION: LEFT BREAST LUMP HISTORY: LEFT breast lump COMPARISON: 03/05/2024 TECHNIQUE: 3 views of the left breast were obtained. FINDINGS: Scattered fibroglandular densities of the left breast. Palpable marker LEFT breast. No suspicious und erlying parenchymal abnormalities. Ultrasound is pending. Skin calcifications. ULTRASOUND BREAST LEFT TECHNIQUE: Ultrasound left breast focused area of concern. CLINICAL INFORMATION: LEFT BREAST LUMP COMPARISON: 03/05/2024 FINDINGS: Ultrasound LEFT breast 10 o'clock position 5 cm from the nipple in the area of concern. No suspicious underlying cystic or solid lesions. No suspicious lesions to target for biopsy. Recommend return to annual screening mammography. US/US breast LT limited* [id number] IMPRESSION: DENSITY: There are scattered areas of fibroglandular density. BI-RADS: 2 - Benign. FOLLOW UP: 1 Year Follow-up Recommend return to annual screening mammography.
== END 2024-09-26 12:06 | disposition home or self-care (01) ==
PROVIDERS: PCP Nurse Practitioner Family; Visit Provider Nurse Practitioner Family
DX: N63.20 Unspecified lump in the left breast, unspecified quadrant (principal); R92.323 Mammographic fibroglandular density, bilateral breasts
CPT/HCPCS: 76642; 77061; G0279

== ENCOUNTER 2024-10-07 20:00 | Outpatient (CLI) | payer MEDICAID, SELFPAY | END 2024-10-07 20:01 | disposition home or self-care (01) | LOC: SLEEP 23:40 | PROVIDERS: PCP Nurse Practitioner Family; Visit Provider Nurse Practitioner Family | DX: G47.33 Obstructive sleep apnea (adult) (pediatric) (principal); G47.34 Idiopathic sleep related nonobstructive alveolar hypoventilation | CPT/HCPCS: 95811 ==

== ENCOUNTER 2024-11-05 10:56 | Outpatient (RCR) | payer MEDICAID, SELFPAY | END 2024-11-08 23:59 | disposition home or self-care (01) | LOC: TPT 10:56 | PROVIDERS: PCP Nurse Practitioner Family; Visit Provider Orthopaedic Surgery | DX: M54.9 Dorsalgia, unspecified (principal); M54.2 Cervicalgia; G89.29 Other chronic pain | CPT/HCPCS: 97161 ==

== ENCOUNTER → 2024-11-13 13:46 | Outpatient (BNVA) | payer SELFPAY | PROVIDERS: PCP Nurse Practitioner Family; Visit Provider Psychiatry & Neurology Psychiatry | DX: F11.20 Opioid dependence, uncomplicated (principal); F15.21 Other stimulant dependence, in remission; Z79.899 Other long term (current) drug therapy | CPT/HCPCS: 80307 ==

== ENCOUNTER 2024-11-27 08:39 | Outpatient (RCR) | payer MEDICAID, SELFPAY | END 2024-12-06 23:59 | disposition home or self-care (01) | LOC: TPT 08:39 | PROVIDERS: PCP Nurse Practitioner Family; Visit Provider Orthopaedic Surgery | DX: M54.9 Dorsalgia, unspecified (principal); M54.2 Cervicalgia; G89.29 Other chronic pain | CPT/HCPCS: 97110 ==

== ENCOUNTER → 2024-11-28 15:33 | Outpatient (BNVA) | payer MEDICAID, SELFPAY | PROVIDERS: PCP Nurse Practitioner Family; Visit Provider Orthopaedic Surgery | DX: M54.50 Low back pain, unspecified (principal); M54.2 Cervicalgia; M54.41 Lumbago with sciatica, right side; M54.42 Lumbago with sciatica, left side; G89.29 Other chronic pain | CPT/HCPCS: 72050; 72110; 99213 ==

== ENCOUNTER 2024-12-07 06:00 | Outpatient (RCR) | payer MEDICAID, SELFPAY | END 2025-01-06 23:59 | disposition home or self-care (01) | LOC: TPT 06:00 | PROVIDERS: PCP Nurse Practitioner Family; Visit Provider Orthopaedic Surgery | DX: M54.9 Dorsalgia, unspecified (principal); M54.2 Cervicalgia; G89.29 Other chronic pain | CPT/HCPCS: 97110 ==

== ENCOUNTER 2024-12-16 13:05 | Outpatient (CLI) | payer MEDICAID, SELFPAY ==
--- NOTE | 2024-12-16 13:00 | MR_ITS ---
WS: [id number] MRI CERVICAL SPINE NONCONTRAST HISTORY: cervical pain COMPARISON: Radiograph 11/28/2024 Technique: Multiplanar, multisequence noncontrast imaging of the cervical spine. Normal cervical alignment with no compression fracture or significant disc space narrowing. Minimal anterolisthesis of C5. Signal within the cervical cord is normal. Visualized posterior fossa is unremarkable. Craniocervical junction, C1 and C2 relationship, odontoid process and soft tissues are normal. C2-C3: Normal. C3-C4: Mild osteophytic ridging. Mild disc bulging. Mild bilateral foraminal stenosis. C4-C5: Small bilateral foraminal osteophytes. Mild bilateral foraminal stenosis. C5-C6: Diffuse annular disc bulging with a moderate LEFT paracentral disc osteophyte deforming the LEFT lateral thecal sac and narrowing the foramen. Moderate LEFT and mild RIGHT foraminal stenosis. Minimal facet arthritis. C6-C7: Mild annular disc bulging and small foraminal osteophytes. No significant stenosis. C7-T1: Normal. Paraspinal soft tissue are normal. MR/MR cervical spin wo con* [id number] IMPRESSION: 1. No high-grade central stenosis. 2. C5-6: Moderate LEFT foraminal stenosis due to disc osteophyte encroaching u erik the LEFT lateral thecal sac and foraminal nerve roots. Mild stenosis on the RIGHT. 3. Mild bilateral foraminal stenosis at C3-4 and C4-5 predominately due to ost eophytes. 4. Minimal anterolisthesis of C5.
--- NOTE | 2024-12-16 13:45 | MR_ITS ---
WS: [id number] MRI LUMBAR SPINE NONCONTRAST HISTORY: lumbar pain COMPARISON: None available. TECHNIQUE: Sagittal and axial multisequence imaging is submitted. Normal lumbar alignment with no compression fractures or marrow edema. Disc spaces and vertebral body heights are well-preserved. Conus terminates normally at L1-2 disc level. L1-L2: Normal. L2-L3: Mild annular disc bulging. Mild bilateral facet arthritis. Very mild encroachment upon the subarticular recesses. No disc protrusions. L3-L4: Mild annular disc bulging with moderate ligamentum flavum and facet arthritis. Very shallow bilateral foraminal disc protrusions. Mild central, bilateral subarticular recess and foraminal stenosis. L4-L5: Mild annular disc bulging with severe ligamentum flavum and facet arthritis. Mild encroachment upon the ventral thecal sac. Mild bilateral subarticular recess and foraminal narrowing. L5-S1: Mild annular disc bulging with no focal disc protrusion. Moderate bilateral facet joint arthritis and ligamentum flavum hypertrophy. Paravertebral soft tissues are negative. MR/MR lumbar spine wo con* [id number] IMPRESSION: 1. No high-grade central or foraminal stenosis. 2. Moderate to severe facet joint arthropathy from L3-4 through L5-S1. Greates t ligamentum flavum and facet arthritis at L4-5. 3. L2-3: Mild disc encroachment upon the subarticular recesses. 4. L3-4: Mild central, bilateral subarticular recess and foraminal stenosis. 5. L4-5: Mild bilateral subarticular recess and foraminal stenosis.
== END 2024-12-16 13:06 | disposition home or self-care (01) ==
PROVIDERS: PCP Nurse Practitioner Family; Visit Provider Orthopaedic Surgery
DX: M48.02 Spinal stenosis, cervical region (principal); M25.512 Pain in left shoulder; M25.511 Pain in right shoulder; M54.10 Radiculopathy, site unspecified; M47.896 Other spondylosis, lumbar region; M47.897 Other spondylosis, lumbosacral region; M24.28 Disorder of ligament, vertebrae; M51.26 Other intervertebral disc displacement, lumbar region; M48.061 Spinal stenosis, lumbar region without neurogenic claudication; M51.369 Other intervertebral disc degeneration, lumbar region without mention of lumbar back pain or lower extremity pain; M51.379 Other intervertebral disc degeneration, lumbosacral region without mention of lumbar back pain or lower extremity pain; R93.7 Abnormal findings on diagnostic imaging of other parts of musculoskeletal system; M25.78 Osteophyte, vertebrae; M50.31 Other cervical disc degeneration, high cervical region; M50.322 Other cervical disc degeneration at C5-C6 level; M50.323 Other cervical disc degeneration at C6-C7 level
CPT/HCPCS: 72141; 72148

== ENCOUNTER → 2024-12-19 14:08 | Outpatient (BNVA) | payer MEDICAID, SELFPAY | PROVIDERS: PCP Nurse Practitioner Family; Visit Provider Orthopaedic Surgery | DX: Z09 Encounter for follow-up examination after completed treatment for conditions other than malignant neoplasm (principal) | CPT/HCPCS: 99214 ==

== ENCOUNTER → 2024-12-30 09:58 | Outpatient (BNVA) | payer MEDICAID, SELFPAY | PROVIDERS: PCP Nurse Practitioner Family; Visit Provider Nurse Practitioner Family | DX: M54.41 Lumbago with sciatica, right side (principal); M54.42 Lumbago with sciatica, left side; G89.29 Other chronic pain; Z87.891 Personal history of nicotine dependence | CPT/HCPCS: 99214 ==

== ENCOUNTER → 2025-01-02 13:53 | Outpatient (BNVA) | payer MEDICAID, SELFPAY | PROVIDERS: PCP Nurse Practitioner Family; Visit Provider Internal Medicine Cardiovascular Disease | DX: R07.89 Other chest pain (principal); R06.02 Shortness of breath; E11.8 Type 2 diabetes mellitus with unspecified complications; Z79.84 Long term (current) use of oral hypoglycemic drugs; I10 Essential (primary) hypertension; F33.9 Major depressive disorder, recurrent, unspecified; I83.93 Asymptomatic varicose veins of bilateral lower extremities; Z87.891 Personal history of nicotine dependence | CPT/HCPCS: 99214 ==

== ENCOUNTER → 2025-01-06 13:38 | Outpatient (BNVA) | payer MEDICAID, SELFPAY | PROVIDERS: PCP Nurse Practitioner Family; Visit Provider Nurse Practitioner Family | DX: M79.18 Myalgia, other site (principal); M54.41 Lumbago with sciatica, right side; M54.42 Lumbago with sciatica, left side; G89.29 Other chronic pain | CPT/HCPCS: 20553; 99214; J1010; J3490 ==

== ENCOUNTER 2025-01-20 13:51 | Outpatient (CLI) | payer MEDICAID, SELFPAY ==
--- NOTE | 2025-01-20 13:57 | XRR_ITS ---
PROCEDURE INFORMATION: Exam: XR Chest Exam date and time: 01/20/2025 2:04 PM Age: 44 years old Clinical indication: Condition or disease; Lung condition and disease; Complications not specified; Prior surgery; Surgery date: 6+ months; Surgery type: Heart; HX of copd. Chronic cough for the last few weeks. TECHNIQUE: Imaging protocol: Radiologic exam of the chest. Views: 2 views. COMPARISON: CR XR chest 1V portable [id number] 08/13/2024 6:06 PM FINDINGS: Lungs: Stable linear scarring in the left lingula and left lower lobe. Lungs are clear bilaterally. Pleural spaces: No pleural effusion. No pneumothorax. Heart/Mediastinum: The cardiac silhouette and mediastinal contours are unremarkable. Bones/joints: Unremarkable for age. XR/XR chest 2V* [id number] IMPRESSION: 1. No acute cardiopulmonary process. 2. Incidental/nonacute findings are listed in the report.
== END 2025-01-20 13:52 | disposition home or self-care (01) ==
LOC: RAD 13:52
PROVIDERS: PCP Nurse Practitioner Family; Visit Provider Nurse Practitioner Family
DX: M54.41 Lumbago with sciatica, right side (principal); M54.42 Lumbago with sciatica, left side; G89.29 Other chronic pain; Z87.891 Personal history of nicotine dependence; J84.10 Pulmonary fibrosis, unspecified
CPT/HCPCS: 71046; 99213

== ENCOUNTER → 2025-01-22 08:26 | Outpatient (BNVA) | payer MEDICAID, SELFPAY | PROVIDERS: PCP Nurse Practitioner Family; Visit Provider Anesthesiology Pain Medicine | DX: M54.16 Radiculopathy, lumbar region (principal); G89.29 Other chronic pain; Z87.891 Personal history of nicotine dependence | CPT/HCPCS: 36416; 64483; 64484; 82962; J1100; J3490; J9999 ==

== ENCOUNTER → 2025-02-05 12:52 | Outpatient (BNVA) | payer MEDICAID, SELFPAY | PROVIDERS: PCP Nurse Practitioner Family; Visit Provider Nurse Practitioner Family | DX: M54.41 Lumbago with sciatica, right side (principal); M54.42 Lumbago with sciatica, left side; G89.29 Other chronic pain | CPT/HCPCS: 99213 ==

== ENCOUNTER → 2025-02-10 15:59 | Outpatient (BNVA) | payer SELFPAY | PROVIDERS: PCP Nurse Practitioner Family; Visit Provider Psychiatry & Neurology Psychiatry | DX: F11.20 Opioid dependence, uncomplicated (principal); Z79.899 Other long term (current) drug therapy; F15.21 Other stimulant dependence, in remission; F33.2 Major depressive disorder, recurrent severe without psychotic features; F43.12 Post-traumatic stress disorder, chronic; F10.21 Alcohol dependence, in remission | CPT/HCPCS: 80307 ==

== ENCOUNTER 2025-02-20 12:11 | Outpatient (CLI) | payer MEDICAID, SELFPAY ==
--- NOTE | 2025-02-20 12:15 | MR_ITS ---
WS: [id number] MRI LUMBAR SPINE NONCONTRAST TECHNIQUE: Sagittal T1, T2 and STIR imaging. Axial T1 and T2 imaging. CLINICAL INFORMATION: M54.16 - Radiculopathy, lumbar region COMPARISON: 12/16/2024 FINDINGS: Mild lumbar curve. No acute compression. No high-grade central canal stenosis. L1-L2: Mild facet arthropathy. Spinal canal and foramen are patent. L2-L3: Moderate facet arthropathy. Spinal canal and foramen are patent. L3-L4: Mild annular bulging. Small LEFT foraminal protrusion with mild LEFT foraminal narrowing similar to previous. Mild narrowing of the subarticular recess bilaterally. Moderate facet arthropathy. L4-L5: Mild annular bulging. Narrowing of the LEFT L4-5 subarticular recess. Moderate facet arthropathy. Mild RIGHT greater than LEFT foraminal narrowing. L5-S1: Mild annular bulging. Moderate facet arthropathy. Spinal canal and foramen are patent. Visualized pelvic bony structures: Normal. Paravertebral soft tissues: Normal. MR/MR lumbar spine wo con* [id number] IMPRESSION: Some images degraded by motion artifact. 1. Mild lumbar curve. No acute compression. No high-grade central canal stenos is. 2. Tiny LEFT foraminal protrusion L3-4 with mild LEFT foraminal narrowing. 3. Mild RIGHT L4-5 foraminal narrowing. 4. Moderate facet arthropathy L3-L5 worse at L4-5 with ligamentum flavum hyper trophy. 5. Narrowing of the bilateral L3-4 and LEFT L4-5 subarticular recess.
== END 2025-02-20 12:12 | disposition home or self-care (01) ==
LOC: RAD 12:13
PROVIDERS: PCP Nurse Practitioner Family; Visit Provider Orthopaedic Surgery
DX: M54.16 Radiculopathy, lumbar region (principal); M79.604 Pain in right leg; M79.605 Pain in left leg; M43.8X6 Other specified deforming dorsopathies, lumbar region; M48.061 Spinal stenosis, lumbar region without neurogenic claudication; M47.896 Other spondylosis, lumbar region; M24.28 Disorder of ligament, vertebrae; M51.369 Other intervertebral disc degeneration, lumbar region without mention of lumbar back pain or lower extremity pain; M51.26 Other intervertebral disc displacement, lumbar region; M51.379 Other intervertebral disc degeneration, lumbosacral region without mention of lumbar back pain or lower extremity pain; M47.897 Other spondylosis, lumbosacral region
CPT/HCPCS: 72148

== ENCOUNTER → 2025-02-25 14:40 | Outpatient (BNVA) | payer MEDICAID, SELFPAY | PROVIDERS: PCP Nurse Practitioner Family; Visit Provider Anesthesiology Pain Medicine | DX: M54.16 Radiculopathy, lumbar region (principal); M54.41 Lumbago with sciatica, right side; M54.42 Lumbago with sciatica, left side; G89.29 Other chronic pain | CPT/HCPCS: 64483; 64484; J1100; J3490; J9999 ==

== ENCOUNTER → 2025-03-11 09:03 | Outpatient (BNVA) | payer MEDICAID, SELFPAY | PROVIDERS: PCP Nurse Practitioner Family; Visit Provider Nurse Practitioner Family | DX: M54.41 Lumbago with sciatica, right side (principal); M54.42 Lumbago with sciatica, left side; G89.29 Other chronic pain; Z09 Encounter for follow-up examination after completed treatment for conditions other than malignant neoplasm | CPT/HCPCS: 99213; 99214 ==

== ENCOUNTER → 2025-03-25 12:56 | Outpatient (BNVA) | payer MEDICAID, SELFPAY | PROVIDERS: PCP Nurse Practitioner Family; Visit Provider Anesthesiology Pain Medicine | DX: M47.816 Spondylosis without myelopathy or radiculopathy, lumbar region (principal); M54.41 Lumbago with sciatica, right side; M54.42 Lumbago with sciatica, left side; G89.29 Other chronic pain; M54.9 Dorsalgia, unspecified | CPT/HCPCS: 64493; 64494; 64495; J3490; J9999 ==

== ENCOUNTER 2025-04-02 12:43 | Outpatient (CLI) | payer MEDICAID, SELFPAY ==
[2025-04-02 13:02] VITALS: PULSE 67; RESP 18; O2SAT 98
[2025-04-02] MEDS: albuterol 2.5 mg/3 mL Neb INHALATION (13:02)
== END 2025-04-02 12:44 | disposition home or self-care (01) ==
LOC: RT 12:44
PROVIDERS: PCP Nurse Practitioner Family; Visit Provider Nurse Practitioner Family
DX: J44.9 Chronic obstructive pulmonary disease, unspecified (principal); J45.909 Unspecified asthma, uncomplicated
CPT/HCPCS: 94060; 94726; 94729; J7613

== ENCOUNTER → 2025-04-09 08:54 | Outpatient (BNVA) | payer MEDICAID, SELFPAY | PROVIDERS: PCP Nurse Practitioner Family; Visit Provider Anesthesiology Pain Medicine | DX: M47.816 Spondylosis without myelopathy or radiculopathy, lumbar region (principal); M54.41 Lumbago with sciatica, right side; M54.42 Lumbago with sciatica, left side; G89.29 Other chronic pain | CPT/HCPCS: 64493; 64494; 64495; J3490; J9999 ==

== ENCOUNTER → 2025-04-23 10:13 | Outpatient (BNVA) | payer MEDICAID, SELFPAY | PROVIDERS: PCP Nurse Practitioner Family; Visit Provider Nurse Practitioner Family | DX: M54.41 Lumbago with sciatica, right side (principal); M54.42 Lumbago with sciatica, left side; G89.29 Other chronic pain; Z87.891 Personal history of nicotine dependence | CPT/HCPCS: 99214 ==

== ENCOUNTER → 2025-05-20 13:48 | Outpatient (BNVA) | payer MEDICAID, SELFPAY | PROVIDERS: PCP Nurse Practitioner Family; Visit Provider Anesthesiology Pain Medicine | DX: M47.816 Spondylosis without myelopathy or radiculopathy, lumbar region (principal); M54.50 Low back pain, unspecified; M54.9 Dorsalgia, unspecified | CPT/HCPCS: 64635; 64636; J1100; J9999 ==

== ENCOUNTER → 2025-05-21 08:03 | Outpatient (BNVA) | payer MEDICAID, SELFPAY | PROVIDERS: PCP Nurse Practitioner Family; Referring Provider Nurse Practitioner Family; Visit Provider Psychiatry & Neurology Neurology | DX: G43.019 Migraine without aura, intractable, without status migrainosus (principal) | CPT/HCPCS: 36415; 80053; 82306; 82607; 82746; 83735; 83921; 84439; 84443; 85025; 99203 ==

== ENCOUNTER 2025-06-01 14:32 | Emergency (ER) | payer MEDICAID, SELFPAY ==
[2025-06-01] VITALS (9 sets, daily range): BP systolic 91–155; BP diastolic 58–86; PULSE 79–95; RESP 13–22; TEMP 36.7; O2SAT 95–99; BMI 40.6
--- OUTSIDE RECORDS SUMMARY | 2025-06-01 14:36 | XMS_ITS | Clinical Summary ---
Author Organization [facility] [place] Address [address] [place] [address] Phone Care Team Providers Care Manager Statistical Name Role Phone Unavailable Primary Care Provider Unavailabl e Allergies No known active allergies Medications Suboxone 8-2 mg film DISSOLVE ONE FILM UNDER THE TONGUE THREE TIMES DAILY WITHOUT CHEWING OR SWALLOWING 1 Active DULoxetine (CYMBALTA) 60 mg Capsule, Delayed Release(E.C.) TAKE 1 CAPSULE BY MOUTH TWICE DAILY 1 Active levothyroxine 75 mcg tablet TAKE 1 TABLET BY MOUTH EVERY DAY 1 Active lisinopriL (PRINIVIL) 10 mg tablet TAKE 1 TABLET BY MOUTH EVERY DAY 1 Active pregabalin (LYRICA) 150 mg Capsule TAKE 1 CAPSULE BY MOUTH THREE TIMES DAILY 1 Active Narcan 4 mg/actuation [place], Non-Aerosol 1 Active fluticasone propion-salmeter oL (ADVAIR DISKUS,WIXELA INHUB) 250-50 mcg/dose disk inhaler Take 1 Puff by inhalation 3 times daily. Active albuterol sulfate 90 mcg/Actuation inhaler Take 2 Puffs by inhalation every 4 hours as needed for Other (See Comment) (shortness of breath). 8.5 Gram 5 1 Active polyethylene glycol 3350 (MIRALAX) 17 gram/dose PowderIndication s:Constipation, unspecified constipation type Take 1 Scoop (17 Grams) by mouth daily. Dissolve in 8 ounces of fluid and drink entire liquid 527 Gram 11 1 Active oxygen home delivery Home Oxygen Concentrator yes at 0 L/M Rest, 2 L/M Activity, 0 L/M Sleep, Delivery Device: Nasal Cannula Portability: yes, 0 L/M Rest, 2 L/M Activity, May provide device best for patient needs(E system,home fill, conserving device) Length of Need: 99 months 1 Each 2 Active ferrous gluconate (FERATE) 256 mg (28 mg iron) Tablet Take 28 mg by mouth daily. 0 Active fluticasone propionate (FLONASE) 50 mcg/spray [place], Suspension nasal inhaler Administer 50 mcg in each nostril Continuous as needed. 0 Active metFORMIN (GLUCOPHAGE XR) 500 mg Extended Release 24 hour tablet Take 500 mg by mouth daily with breakfast. Active methocarbamoL (ROBAXIN) 500 mg tablet Take 750 mg by mouth 2 times daily. 2 Active cetirizine (ZyrTEC) 10 mg tablet TAKE 1 TABLET BY MOUTH ONCE DAILY FOR SEASONAL ALLERGIES 2 Active furosemide (LASIX) 40 mg tabletIndication s:Pulmonary HTN (CMS/HCC) Take 1 tablet by mouth once daily 30 Tablet 2 2 Active celecoxib (CeleBREX) 100 mg capsule Take 1 Capsule by mouth 2 times daily. 5 Active Ozempic 0.25 mg or 0.5 mg (2 mg/3 mL) Pen Injector every Monday. 5 Active ARIPiprazole (ABILIFY) 5 mg tablet Take 5 mg by mouth daily. Active polyethylene glycol 3350 (Gavilax) 17 gram/dose Powder Take 17 g every day by oral route as directed. 3 Active buPROPion HCL (WELLBUTRIN XL) 300 mg Extended Release 24 hour tablet take 1 tablet by mouth in the morning 5 Active FLUoxetine (PROzac) 20 mg capsule 1 Capsule. Active Zepbound 2.5 mg/0.5 mL Pen Injector Inject 2.5 mg by subcutaneous injection every 7 days. 5 Active Active Problems Problem Noted Date Diagnosed Date Allergic rhinitis 01/21/2022 Asthma 01/21/2022 Chronic pain 01/21/2022 Chronic obstructive pulmonary disease 01/21/2022 Hypothyroidism 01/21/2022 Impaired glucose tolerance 01/21/2022 History of tracheostomy 10/31/2021 Former smoker, stopped smoking in distant past 0 10/29/2021 LALITO treated with BiPAP 10/29/2021 O2 dependent 10/28/2021 Pulmonary HTN 09/13/2021 Chronic hypoxemic respiratory failure 09/13/2021 Morbid obesity with body mass index of 40.0-49.9 09/13/2021 HTN (hypertension), benign 09/13/2021 Hypothyroidism due to acquired atrophy of thyroi d 09/13/2021 Prediabetes 09/13/2021 Family history of malignant neoplasm of ovary Overview (01/21/2022): Genetic testing through the [facility] study was normal/negative for hereditary cancer conditions. Genetic testing results and documentation available under media tab as outside record on 06/19/2019 History of genetic counseling 06/24/2019 Overview (01/21/2022): Genetic testing through the [facility] study was normal/negative for hereditary cancer conditions. Genetic testing results and documentation available under media tab as outside record on 06/19/2019 Abnormal mammogram 03/19/2019 Tobacco use disorder 04/18/2017 Abscess of liver 04/10/2017 Leukocytosis 04/10/2017 Acute respiratory failure following trauma and s urgery 02/23/2017 Alcohol abuse 02/23/2017 Cardiac arrest 02/23/2017 Depression 02/23/2017 Closed fracture of multiple ribs of left side HCV (hepatitis C virus) 02/23/2017 Hemopneumothorax 02/23/2017 Liver laceration, grade IV, without open wound i nto cavity 02/23/2017 Encounters Date Type Department Care Team Description 05/27/2025 External Device Data [facility]STRACTION Provider, Abstract 04/23/2025 External Device Data [facility]STRACTION Provider, Abstract 04/23/2025 External Device Data [facility]STRACTION Provider, Abstract 04/23/2025 External Device Data [facility]STRACTION Provider, Abstract 04/22/2025 External Device Data [facility]STRACTION Provider, Abstract 04/08/2025 External Device Data [facility]STRACTION Provider, Abstract 03/28/2025 11:00 AM CDT Telemed [facility] [place] [address] [place] [address] Kyra Monson MD LALITO (obstructive sleep apnea) (Primary Dx) 2025 External Device Data [facility]STRACTION Provider, Abstract 03/25/2025 External Device Data [facility]STRACTION Provider, Abstract 03/04/2025 External Device Data [facility]STRACTION Provider, Abstract from Last 3 Months Immunizations Immunization Administration Dates Next Due (ADACEL/BOOSTRIX)(10 YR UP) TDAP VACCINE, 0.5ML, IM 03/09/2018 (SPIKEVAX) (12 YRS UP PRIMAR Y SERIES) COVID-19 VACCINE - MRNA-1273(PF) 100 MCG/0.5 ML IM SUSP 12/08/2020 Influenza Seasonal Unspecified Formulation IM Influenza Virus Vaccine, Spl it Virus (Incl. Purified Surface antigen)-retired CODE 07/06/2020,07/18/2019 Skin Test TB 04/12/2017 Family History Medical History Relation Name Comments No Known Problems Brother 1 No Known Problems Brother 2 No Known Problems Brother 3 No Known Problems Brother 4 No Known Problems Daughter No Known Problems Father Ovarian Cancer Maternal Grandmother Karen daniel Roldan No Known Problems Mother Other Sister 1 rheumatoid arth ritis No Known Problems Sister 2 No Known Problems Sister 3 No Known Problems Son 1 No Known Problems Son 2 Relation Name Status Comments Brother 1 Alive Brother 2 Alive Brother 3 Alive Brother 4 Alive Daughter Alive Father Alive Maternal Grandfather Maternal Grandmother Karen daniel Roldan Deceas ed Mother Paternal Grandfather Paternal Grandmother Alive Sister 1 Alive Sister 2 Alive Sister 3 Alive Son 1 Alive Son 2 Alive Social History Tobacco Use Types Packs/Day Years Used Date Smoking Tobacco: Former Cigarettes 1 23 0 01/07/1996 - 01/06/2019 Smokeless Tobacco: Never Tobacco Cessation:Counseling Given: Not Answered Alcohol Use Standard Drinks/Week Comments Not Currently 0 (1 standard drink = 0.6 oz pure alcohol) 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 Comments No Sex and Gender Information Value Date Recorded Sex Assigned at Not on file Legal Sex Female 12:07 AM ENGINEERING 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 TECHNICIAN Gender Identity Not on file Sexual Orientation Not on file Last Filed Vital Signs Vital Sign Reading Time Taken Comments Blood Pressure 134/84 03/28/2025 11:10 AM CDT Pulse 80 03/28/2025 11:10 AM CDT Temperature 36.6 C (97.9 F) 03/28/2025 11:10 AM CDT Respiratory Rate 16 03/28/2025 11:1 0 AM CDT Oxygen Saturation 98% 03/28/2025 11: 10 AM CDT Inhaled Oxygen Concentration - - Weight 109.4 kg (241 lb 3.2 oz) 025 11:10 AM CDT Height 165.1 cm (5' 5 ) 03/28/2025 11:1 0 AM CDT Body Mass Index 40.14 03/28/2025 11:10 AM CDT Plan of Treatment Upcoming Encounters Date Type Department Care Team (Late st Contact Info) Description 09/26/2025 11:00 AM ENGINEERING LAB TECHNICIAN Telemed [facility] [employer] [address] [place] [address] Kyra Monson MD [address] [place] [id number] Health Maintenance Due Date Last Done Comments HPV VACCINES (1 - 3-dose series) 1996 HEPATITIS B VACCINES (1 of 3 - 19+ 3-dose series) 2000 HPV/Cotest (21-29) 2002 CERVICAL CANCER SCREENING 2011 HPV/Cotest (30-65) 2011 PAP SMEAR 2011 BREAST CANCER SCREENING 10/12/2022 10/12/2021 COVID-19 Vaccine (3 - 2023- season) 06/09/202411/2020, 11/10/2020 Pre-Diabetes and Diabetes Screening 09/13/202409/13 INFLUENZA VACCINE (#1) 2025 10/28/2021, 2019 DTAP/TDAP/TD VACCINES (2 - Td or Tdap) 03/09/2028 Procedures Procedure Name Priority Date/Time Associated Diagnosis Comments MAMMO 3D ALEXANDER SCREEN BILAT W OR WO CAD Routine 10/12/2021 12:16 PM ENGINEERING LAB TECHNICIAN Screening mammogram, encounter for HEMOGLOBIN A1C Routine 09/13/2021 12:56 PM ENGINEERING LAB TECHNICIAN Prediabetes from Last 3 Months or Most Recently Relevant to Health Maintenance Results * MAMMO SCRN BILAT 3D ALEXANDER W OR WO CAD (10/12/2021 12:16 PM ENGINEERING LAB TECHNICIAN) Anatomical Region Laterality Modality Breast Bilateral Mammography Narrative 10/30/2021 11:28 AM ENGINEERING LAB TECHNICIAN Bilateral Digital Mammogram with CAD and 3D Tomography Reason for Exam: Screening Comparison: No comparisons were made when reading this study. Technique: 3D MLO and CC digital tomosynthesis images were acquired and synthesized 2D images (C view) were generated. This digital mammogram was also analyzed by the Computer Aided Detection System CAD). Breast Composition: The breasts are almost entirely fatty. There are no suspicious masses, areas of architectural distortions, or microcalcifications to suggest malignancy. No significant new findings since the prior mammogram(s). us Lionel Desai MD MAMMO ORDERABLES Final Res ult * (ABNORMAL) HEMOGLOBIN A1C (09/13/2021 12:56 PM ENGINEERING LAB TECHNICIAN) HEMOGLOBIN A1C 5.9(H) <5.7 % of total Hgb [facility] Comment: For someone without known diabetes, a hemoglobin A1c value between 5.7% and 6.4% is consistent with prediabetes and should be confirmed with a follow-up test. For someone with known diabetes, a value <7% indicates that their diabetes is well controlled. A1c targets should be individualized based on duration of diabetes, age, comorbid conditions, and other considerations. This assay result is consistent with an increased risk of diabetes. Currently, no consensus exists regarding use of hemoglobin A1c for diagnosis of diabetes for children. FASTING:YES FASTING: YES Test Performed at: [employer] [address] [id number] [facility] [place] [address] Kelby Gillespie D.O., MPH Blood 09/13/2021 12:5 6 PM ENGINEERING LAB TECHNICIAN 09/13/2021 12:57 PM ENGINEERING LAB TECHNICIAN Lionel Desai MD CHEMISTRY ORDERABLES Final Result Performing Organization Address City/State/[facility] Co de Phone Number [facility] [address] [place] [address] from Last 3 Months or Most Recently Relevant to Health Maintenance Insurance [place]ICA[place]
--- OUTSIDE RECORDS SUMMARY | 2025-06-01 14:36 | XMS_ITS | Encounter Summary ---
Author Organization [employer] Address 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 Comments No Sex and Gender Information Value Date Recorded Sex Assigned at Not on file Legal Sex Female 12:07 AM DIRECTOR OF PHARMACY Gender Identity Not on file Sexual Orientation Not on file documented as of this encounter Plan of Treatment Upcoming Encounters Date Type Department Care Team (Late st Contact Info) Description 09/26/2025 11:00 AM DIRECTOR OF PHARMACY Telemed [facility] - [place] [address] [place] [id number] Kyra Monson MD [address] [place] [id number] documented as of this encounter Visit Diagnoses Not on filedocumented in this encounter Additional Health Concerns Assessment Noted Time PHQ-9 Depression Total Score: 2 10/28/19 22 5:00 PM DIRECTOR OF PHARMACY documented as of this encounter
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
--- NOTE | 2025-06-01 14:53 | ECG_ITS ---
[facility] Test Date: 2025-06-01 Pat Name: Dena Grider Department: Room: Gender: Female Unemployment Benefits Claims Taker: : 1980 Requested By: Hunter Ramos Order Number: [id number] Weiner MD: Nia Erickson M.D. Measurements Intervals [place] Rate: 80 P: 56 NC: 161 QRS: 79 QRSD: 117 T: 63 QT: 401 QTc: 464 Interpretive Statements SINUS RHYTHM MODERATE INTRAVENTRICULAR CONDUCTION DELAY [110+ ms QRS DURATION] Compared to ECG 08/22/2024 08:26:59 Intraventricular conduction delay now present Electronically Signed On 06-01-2025 18:45:06 CDT by Nia Erickson M.D. [email or web address]
[2025-06-01 14:59] LABS: HCG Qualitative Urine. Negative (Negative)
[2025-06-01 15:11] LABS: Glucose Urine UA Negative (Normal); Nitrate Urine Negative (Negative); Specific Gravity, Urine 1.009 (1.005-1.030)
[2025-06-01 15:17] LABS: Hematocrit 35.0 % (36-47); Hemoglobin 11.20 g/dL (11.27-16.99); Mean Corpuscular HGB Conc 32.0 g/dL (30-55); Mean Corpuscular Hemoglobin 27.2 pg (27-33); Mean Corpuscular Volume 85.0 fl (85-98); Nucleated Red Blood Cells % 0 %; Platelet Count 177 10^3/cmm (157-399); Red Blood Count 4.12 10^6/uL (3.85-5.65); White Blood Count 11.09 10^3/uL (3.29-11.43)
[2025-06-01 15:18] LABS: PCP Screen Urine Negative (Negative)
[2025-06-01 15:19] LABS: Add Urine Microscopic? YES
--- NOTE | 2025-06-01 15:25 | PC.PHAR ---
Pt has Aripiprazole 10mg daily but last fill date was 03/21/25 30ds. Unknown if pt took am medications.
--- NOTE | 2025-06-01 15:31 | ED.C_ITS ---
HPI - Psych 2 General: Chief Complaint: Psychiatric Symptoms Stated Complaint: overdose Time Seen by Provider: 06/01/25 14:35 History of Present Illness: HPI: Patient was having an argument with her family members when she decided to take 15-20 tabs of her 150 mg gabapentin. States that she did this in an attempt to end her life. States that she was sick of arguing with family members. Brought to the emergency department after EMS was called while they were on the side of the highway [place] the way to the hospital. She was traveling with her significant other. No fevers associate with chills. Denies other ingestions including alcohol, illicit substances, or excessive amounts of home medications. Ingestion occurred at approximately 1300 hrs. REVIEW OF SYSTEMS: 10 systems reviewed and otherwise unrema rkable except for those noted in HPI. PHYSCIAL EXAM: Triage vital signs reviewed Gen: A&O NAD HEENT: NCAT, EOMI, not icteric. External ears normal. No rhinorrhea. Moist mucous membranes. Neck: Supple, full range of motion, no observable masses, No meningeal sign. Lungs: No Respiratory distress. CV: RRR, no edema. Abdomen: Soft, nondistended, No rebound tenderness. MSK: No joint swelling, no redness. Skin: No rashes, petechiae, lesions. Normal color per patient. Neuro: Normal Gait, Grossly intact. Psych: Depressed mood and affect, no visual or auditory loose nations. PROCEDURES: EKG: Rate: Normal Rhythm: Sinus Fidelity: Normal variant Intervals: Normal Ischemia: No STEMI criteria Related Data Home Medications ?Medication ?Instructions ?Recorded ?Confirmed furosemide 40 mg tablet 40 mg PO DAILY 08/13/2405/10 levothyroxine 75 mcg tablet 75 mcg PO DAILY 08/13/24 0 06/01/25 (Euthyrox) lisinopril 10 mg tablet 10 mg PO DAILY 08/13/2405/10 metformin 500 mg tablet 500 mg PO DAILY 08/13/24 polyethylene glycol 3350 17 17 g PO DAILY PRN Constipa tion 08/13/24 06/01/25 gram/dose oral powder pregabalin 150 mg capsule 150 mg PO TID 08/13/2406/01 topiramate 25 mg capsule,extended 25 mg PO DAILY 05/2106/01/25 release 24 hr (Trokendi XR) albuterol sulfate 90 mcg/actuation 2 puff inhalation Q ID PRN Wheezing 06/01/25 06/01/25 aerosol inhaler (Ventolin HFA) celecoxib 100 mg capsule 100 mg PO BID 06/01/2506/01 cetirizine 10 mg tablet 10 mg PO DAILY PRN allergies 06/01/25 06/01/25 mupirocin 2 % topical ointment See Rx Instructions .Ro [place] .COMPLEX 06/01/25 06/01/25 tirzepatide (weight loss) 5 mg/0.5 5 mg SUBCUT Q7D 06/01/25 mL subcutaneous pen injector (Zepbound) Previous Rx's ?Medication ?Instructions ?Recorded fluticasone 100 mcg-salmeterol 50 1 inh inhalation BID #60 ea 05/31/23 mcg/dose blistr powdr for inhalation (Advair Diskus) methocarbamol 750 mg tablet 750 mg PO TID PRN muscle 0 01/20/25 spasticity #60 tabs buprenorphine 8 mg-naloxone 2 mg 1 film sublingual BID #60 ea 02/10/25 sublingual film duloxetine 60 mg capsule,delayed 120 mg (2 x 60 mg) PO DAILY #60 02/10/25 release caps bupropion HCl 300 mg 24 hr tablet, 300 mg PO QAM #30 t abs 03/14/25 extended release (Wellbutrin XL) risperidone 0.25 mg tablet 0.25 mg PO BID #60 tabs Allergies Allergy/AdvReac Type Severity Reaction Status Date / Time No Known Allergies Allergy Verified 05/21/25 08:10 PFS ED 2 PFSH: Medical History (Updated 06/01/25 @ 16:10 by Hunter Ramos MD) Hepatitis C antibody positive in blood Psychiatric care Social History (Updated 05/21/25 @ 08:16 by Kelby Heredia LPN) Smoking and tobacco/nicotine status: former use of tobacco/nicotine Quit status (tobacco/nicotine): has quit using Year quit tobacco: 2019 Former quit date comment: 1 ppd X 24 years Alcohol intake: never Substance/Drug Use: former Lives independently: Yes Household members: children Housing: House Marital status: Single Number of children: 1 Number of grandchildren: 2 service: No Current occupational status: disabled Crystal/Zoroastrianism: [employer] Course 2 Vital Signs: Vital signs: Vital Signs Temperature 98.0 F 06/01/25 14:34 Pulse Rate 79 06/01/25 16:00 Respiratory Rate 22 H 06/01/25 16:00 Blood Pressure 145/77 06/01/25 16:00 Pulse Oximetry 97 06/01/25 16:00 Oxygen Delivery Me thod Room Air 06/01/25 14:34 MDM - Psych Medical Decision Making MEDICAL DECISION MAKING: Differential diagnoses considered but not limited to: Suicide attempt, suicidal ideation, occult homicidal ideation, drug toxidrome, impending cardiopulmonary collapse, seizure, or airway compromise. Vitals nonactionable. Given history, examination, and pretest risk factors, feel most consistent with gabapentin overdose without sequelae involving airway compromise, cardiogenic collapse, or other occult ingestion. No evidence of life threat to hours after initial ingestion. Continue to monitor the patient in the emergency department while obtaining labs. Labs returned without emergent abnormality. EKG without prolonged QT. Patient will be transferred to inpatient psychiatric facility. Affidavit signed. DISPO: SANDY Ramos MD Staff physician, [facility] [place] [facility] [phone] Lab Data 06/01/25 15:11 06/01/25 15:11 Laboratory Results WBC 11.09 10^3/uL (3.29-11.43) 06/01/25 15:11 RBC 4.12 10^6/uL (3.85-5.65) 06/01/25 15:11 Hgb 11.20 g/dL (11.27-16.99) L 06/01/25 15:11 Hct 35.0 % (36-47) L 06/01/25 15:11 MCV 85.0 fl (85-98) 06/01/25 15:11 MCH 27.2 pg (27-33) 06/01/25 15:11 MCHC 32.0 g/dL (30-55) 06/01/25 15:11 RDW 12.9 % (12.1-15.1) 06/01/25 15:11 Plt Count 177 10^3/cmm (157-399) 06/01/25 15:11 MPV 11.7 fL (7.4-10.4) H 06/01/25 15:11 Neut % (Auto) 78.7 % 06/01/25 15:11 Lymph % (Auto) 15.6 % 06/01/25 15:11 [place] % (Auto) 3.8 % 06/01/25 15:11 Eos % (Auto) 1.0 % 06/01/25 15:11 Baso % (Auto) 0.5 % 06/01/25 15:11 Neut # (Auto) 8.74 10^3/uL (1.8-7.7) H 06/01/25 15:11 Lymph # (Auto) 1.7 10^3/uL (0.8-4.8) 06/01/25 15:11 [place] # (Auto) 0.4 10^3/uL (0.2-0.9) 06/01/25 15:11 Eos # (Auto) 0.1 10^3/uL (0.0-0.8) 06/01/25 15:11 Baso # (Auto) 0.1 10^3/uL (0.0-0.1) 06/01/25 15:11 Nucleated RBC % (auto) 0 % 06/01/25 15:11 Nucleated RBCs # 0.0 /100WBC 06/01/25 15:11 Sodium 133 mmol/L (136-145) L 06/01/25 15:11 Potassium 3.3 mmol/L (3.5-5.1) L 06/01/25 15:11 Chloride 97 mmol/L (98-107) L 06/01/25 15:11 Carbon Dioxide 20 mmol/L (22-29) L 06/01/25 15:11 Anion Gap 19.3 (5-19) H 06/01/25 15:11 BUN 8 mg/dL (6-20) 06/01/25 15:11 Creatinine 0.8 mg/dL (0.5-0.9) 06/01/25 15:11 GFR Calculation 77.9 mL/min (90-130) L 06/01/25 15:11 Glucose 115 mg/dL (65-115) 06/01/25 15:11 Calculated Osmolality 275 mOsm/kg (285-295) L 06/01/25 15:11 Calcium 9.0 mg/dL (8.5-10.5) 06/01/25 15:11 Total Bilirubin 0.6 mg/dL (0.15-1.2) 06/01/25 15:11 AST 24 U/L (0-32) 06/01/25 15:11 ALT 25 U/L (0-33) 06/01/25 15:11 Alkaline Phosphatase 92 U/L (35-105) 06/01/25 15:11 Total Protein 7.7 g/dL (6.6-8.7) 06/01/25 15:11 Albumin 4.2 g/dL (3.5-5.2) 06/01/25 15:11 Globulin 3.5 g/dL (1.3-4.6) 06/01/25 15:11 TSH 0.92 uIU/mL (0.27-4.20) 06/01/25 15:11 HCG, Qual Negative (Negative) 06/01/25 14:50 Urine Color Yellow (Yellow) 06/01/25 14:50 Urine Appearance Clear (CLEAR) 06/01/25 14:50 Urine pH 7.5 (5-7) 06/01/25 14:50 Ur Specific [place] 1.009 (1.005-1.030) 06/01/25 14:50 Urine Protein Negative (Negative) 06/01/25 14:50 Urine Glucose (UA) Negative (Normal) 06/01/25 14:50 Urine Ketones Trace (Negative) 06/01/25 14:50 Urine Blood Negative (Negative) 06/01/25 14:50 Urine Nitrate Negative (Negative) 06/01/25 14:50 Urine Bilirubin Negative (Negative) 06/01/25 14:50 Urine Urobilinogen 1.0 mg/dL (Negative) 06/01/25 14:50 Ur Leukocyte Esterase Negative (Negative) 06/01/25 14:50 Urine RBC 0-2 /hpf (0-2) 06/01/25 14:50 Urine WBC 0-5 /hpf (0-5) 06/01/25 14:50 Ur Squamous Epith Cells 0-5 /hpf (0-5) 06/01/25 14:50 Amorphous Sediment Not Reportable 06/01/25 14:50 Urine Bacteria None seen /hpf (NONE) 06/01/25 14:50 Hyaline Casts 0-4 /lpf H 06/01/25 14:50 Salicylates < 0.3 mg/dL (3-10) L 06/01/25 15:11 Urine Opiates Screen Negative ng/mL (Negative) 06/01/25 14:50 Acetaminophen < 5.0 ug/mL (10-30) L 06/01/25 15:11 Ur Barbiturates Screen Negative ng/mL (Negative) 06/01/25 14:50 Ur Phencyclidine Scrn Negative ng/mL (Negative) 06/01/25 14:50 Ur Amphetamines Screen Negative ng/mL (Negative) 06/01/25 14:50 U Benzodiazepines Scrn Negative ng/mL (Negative) 06/01/25 14:50 Urine Cocaine Screen Negative ng/mL (Negative) 06/01/25 14:50 U Marijuana (THC) Screen Negative ng/mL (Negative) 06/01/25 14:50 Ethyl Alcohol < 10 mg/dL (0-10) 06/01/25 15:11 No radiology studies performed this visit Discharge Plan Discharge Patient Disposition: Xfer Psychiatric Hosp Clinical Impression: Suicide attempt, Suicide attempt by drug overdose, Acute hypokalemia Condition: Stable Referrals: Jackie Hsu FNP [Primary Care Provider, Nurse Practitioner] Print Language: Israeli Coding Level of Care Code ED Bilingual Speech Language Pathologist for Luz Najera
--- NOTE | 2025-06-01 15:31 | PC.NURSE ---
Pt was read her 96 hour hold rights at 1520. Security was present.
[2025-06-01 15:45] LABS: Alanine Aminotransferase 25 U/L (0-33); Albumin Level 4.2 g/dL (3.5-5.2); Alkaline Phosphatase 92 U/L (35-105); Aspartate Amino Transferase 24 U/L (0-32); Blood Urea Nitrogen 8 mg/dL (6-20); Calcium 9.0 mg/dL (8.5-10.5); Carbon Dioxide 20 mmol/L (22-29); Chloride 97 mmol/L (98-107); Creatinine Clr Calc Pharmacy 107.4122; Globulin 3.5 g/dL (1.3-4.6); Glucose 115 mg/dL (65-115); Osmolality Calculated 275 mOsm/kg (285-295); Sodium 133 mmol/L (136-145); Thyroid Stimulating Hormone 0.92 uIU/mL (0.27-4.20); Total Protein 7.7 g/dL (6.6-8.7)
[2025-06-01 15:47] LABS: Acetaminophen < 5.0 ug/mL (10-30); Alcohol Level < 10 mg/dL (0-10); Anion Gap 19.3 (5-19); Potassium 3.3 mmol/L (3.5-5.1); Salicylate < 0.3 mg/dL (3-10)
--- NOTE | 2025-06-01 16:17 | PC.NURSE ---
Per pt she has to wear a CPAP at night when sleeping.
[2025-06-01] MEDS: potassium chloride oral liq 20 mEq/15 mL UDC 40 MEQ PO (16:30)
--- NOTE | 2025-06-01 17:28 | ED.C_ITS ---
<Statement entered by Hunter Ramos MD - 06/01/25 17:38> note in error see note from same day HPI - Psych 2 General: Chief Complaint: Psychiatric Symptoms Stated Complaint: overdose Time Seen by Provider: 06/01/25 14:35 History of Present Illness: duplicate Related Data Home Medications ?Medication ?Instructions ?Recorded ?Confirmed furosemide 40 mg tablet 40 mg PO DAILY 08/13/2405/10 levothyroxine 75 mcg tablet 75 mcg PO DAILY 08/13/24 0 06/01/25 (Euthyrox) lisinopril 10 mg tablet 10 mg PO DAILY 08/13/2405/10 metformin 500 mg tablet 500 mg PO DAILY 08/13/24 polyethylene glycol 3350 17 17 g PO DAILY PRN Constipa tion 08/13/24 06/01/25 gram/dose oral powder pregabalin 150 mg capsule 150 mg PO TID 08/13/2406/01 topiramate 25 mg capsule,extended 25 mg PO DAILY 05/2106/01/25 release 24 hr (Trokendi XR) albuterol sulfate 90 mcg/actuation 2 puff inhalation Q ID PRN Wheezing 06/01/25 06/01/25 aerosol inhaler (Ventolin HFA) celecoxib 100 mg capsule 100 mg PO BID 06/01/2506/01 cetirizine 10 mg tablet 10 mg PO DAILY PRN allergies 06/01/25 06/01/25 mupirocin 2 % topical ointment See Rx Instructions .Ro [place] .COMPLEX 06/01/25 06/01/25 tirzepatide (weight loss) 5 mg/0.5 5 mg SUBCUT Q7D 06/01/25 mL subcutaneous pen injector (Zepbound) Previous Rx's ?Medication ?Instructions ?Recorded fluticasone 100 mcg-salmeterol 50 1 inh inhalation BID #60 ea 05/31/23 mcg/dose blistr powdr for inhalation (Advair Diskus) methocarbamol 750 mg tablet 750 mg PO TID PRN muscle 0 01/20/25 spasticity #60 tabs buprenorphine 8 mg-naloxone 2 mg 1 film sublingual BID #60 ea 02/10/25 sublingual film duloxetine 60 mg capsule,delayed 120 mg (2 x 60 mg) PO DAILY #60 02/10/25 release caps bupropion HCl 300 mg 24 hr tablet, 300 mg PO QAM #30 t abs 03/14/25 extended release (Wellbutrin XL) risperidone 0.25 mg tablet 0.25 mg PO BID #60 tabs Allergies Allergy/AdvReac Type Severity Reaction Status Date / Time No Known Allergies Allergy Verified 05/21/25 08:10 Review of Systems 2 Eyes: Denies: photophobia ENMT: Denies: enlarged tonsils PFSH ED 2 PFSH: Medical History (Updated 06/01/25 @ 16:10 by Hunter Ramos MD) Hepatitis C antibody positive in blood Psychiatric care Social History (Updated 05/21/25 @ 08:16 by Kelby Heredia LPN) Smoking and tobacco/nicotine status: former use of tobacco/nicotine Quit status (tobacco/nicotine): has quit using Year quit tobacco: 2019 Former quit date comment: 1 ppd X 24 years Alcohol intake: never Substance/Drug Use: former Lives independently: Yes Household members: children Housing: House Marital status: Single Number of children: 1 Number of grandchildren: 2 service: No Current occupational status: disabled [employer]/Buddhism: [employer] 2 Vital Signs: Vital signs: Vital Signs Temperature 98.0 F 06/01/25 14:34 Pulse Rate 79 06/01/25 16:00 Respiratory Rate 22 H 06/01/25 16:00 Blood Pressure 145/77 06/01/25 16:00 Pulse Oximetry 97 06/01/25 16:00 Oxygen Delivery Me thod Room Air 06/01/25 14:34 MDM - Psych Lab Data 06/01/25 15:11 06/01/25 15:11 Laboratory Results WBC 11.09 10^3/uL (3.29-11.43) 06/01/25 15:11 RBC 4.12 10^6/uL (3.85-5.65) 06/01/25 15:11 Hgb 11.20 g/dL (11.27-16.99) L 06/01/25 15:11 Hct 35.0 % (36-47) L 06/01/25 15:11 MCV 85.0 fl (85-98) 06/01/25 15:11 MCH 27.2 pg (27-33) 06/01/25 15:11 MCHC 32.0 g/dL (30-55) 06/01/25 15:11 RDW 12.9 % (12.1-15.1) 06/01/25 15:11 Plt Count 177 10^3/cmm (157-399) 06/01/25 15:11 MPV 11.7 fL (7.4-10.4) H 06/01/25 15:11 Neut % (Auto) 78.7 % 06/01/25 15:11 Lymph % (Auto) 15.6 % 06/01/25 15:11 [place] % (Auto) 3.8 % 06/01/25 15:11 Eos % (Auto) 1.0 % 06/01/25 15:11 Baso % (Auto) 0.5 % 06/01/25 15:11 Neut # (Auto) 8.74 10^3/uL (1.8-7.7) H 06/01/25 15:11 Lymph # (Auto) 1.7 10^3/uL (0.8-4.8) 06/01/25 15:11 [place] # (Auto) 0.4 10^3/uL (0.2-0.9) 06/01/25 15:11 Eos # (Auto) 0.1 10^3/uL (0.0-0.8) 06/01/25 15:11 Baso # (Auto) 0.1 10^3/uL (0.0-0.1) 06/01/25 15:11 Nucleated RBC % (auto) 0 % 06/01/25 15:11 Nucleated RBCs # 0.0 /100WBC 06/01/25 15:11 Sodium 133 mmol/L (136-145) L 06/01/25 15:11 Potassium 3.3 mmol/L (3.5-5.1) L 06/01/25 15:11 Chloride 97 mmol/L (98-107) L 06/01/25 15:11 Carbon Dioxide 20 mmol/L (22-29) L 06/01/25 15:11 Anion Gap 19.3 (5-19) H 06/01/25 15:11 BUN 8 mg/dL (6-20) 06/01/25 15:11 Creatinine 0.8 mg/dL (0.5-0.9) 06/01/25 15:11 GFR Calculation 77.9 mL/min (90-130) L 06/01/25 15:11 Glucose 115 mg/dL (65-115) 06/01/25 15:11 Calculated Osmolality 275 mOsm/kg (285-295) L 06/01/25 15:11 Calcium 9.0 mg/dL (8.5-10.5) 06/01/25 15:11 Total Bilirubin 0.6 mg/dL (0.15-1.2) 06/01/25 15:11 AST 24 U/L (0-32) 06/01/25 15:11 ALT 25 U/L (0-33) 06/01/25 15:11 Alkaline Phosphatase 92 U/L (35-105) 06/01/25 15:11 Total Protein 7.7 g/dL (6.6-8.7) 06/01/25 15:11 Albumin 4.2 g/dL (3.5-5.2) 06/01/25 15:11 Globulin 3.5 g/dL (1.3-4.6) 06/01/25 15:11 TSH 0.92 uIU/mL (0.27-4.20) 06/01/25 15:11 HCG, Qual Negative (Negative) 06/01/25 14:50 Urine Color Yellow (Yellow) 06/01/25 14:50 Urine Appearance Clear (CLEAR) 06/01/25 14:50 Urine pH 7.5 (5-7) 06/01/25 14:50 Ur Specific [place] 1.009 (1.005-1.030) 06/01/25 14:50 Urine Protein Negative (Negative) 06/01/25 14:50 Urine Glucose (UA) Negative (Normal) 06/01/25 14:50 Urine Ketones Trace (Negative) 06/01/25 14:50 Urine Blood Negative (Negative) 06/01/25 14:50 Urine Nitrate Negative (Negative) 06/01/25 14:50 Urine Bilirubin Negative (Negative) 06/01/25 14:50 Urine Urobilinogen 1.0 mg/dL (Negative) 06/01/25 14:50 Ur Leukocyte Esterase Negative (Negative) 06/01/25 14:50 Urine RBC 0-2 /hpf (0-2) 06/01/25 14:50 Urine WBC 0-5 /hpf (0-5) 06/01/25 14:50 Ur Squamous Epith Cells 0-5 /hpf (0-5) 06/01/25 14:50 Amorphous Sediment Not Reportable 06/01/25 14:50 Urine Bacteria None seen /hpf (NONE) 06/01/25 14:50 Hyaline Casts 0-4 /lpf H 06/01/25 14:50 Salicylates < 0.3 mg/dL (3-10) L 06/01/25 15:11 Urine Opiates Screen Negative ng/mL (Negative) 06/01/25 14:50 Acetaminophen < 5.0 ug/mL (10-30) L 06/01/25 15:11 Ur Barbiturates Screen Negative ng/mL (Negative) 06/01/25 14:50 Ur Phencyclidine Scrn Negative ng/mL (Negative) 06/01/25 14:50 Ur Amphetamines Screen Negative ng/mL (Negative) 06/01/25 14:50 U Benzodiazepines Scrn Negative ng/mL (Negative) 06/01/25 14:50 Urine Cocaine Screen Negative ng/mL (Negative) 06/01/25 14:50 U Marijuana (THC) Screen Negative ng/mL (Negative) 06/01/25 14:50 Ethyl Alcohol < 10 mg/dL (0-10) 06/01/25 15:11 Discharge Plan Discharge Patient Disposition: Xfer Psychiatric Hosp Clinical Impression: Suicide attempt, Suicide attempt by drug overdose, Acute hypokalemia Condition: Stable Referrals: Jackie Hsu, SENIOR BENEFITS SPECIALIST [Primary Care Provider, Nurse Practitioner] Print Language: Indonesian Coding Level of Care Code ED Creel Clerk for Luz Najera
--- NOTE | 2025-06-01 19:44 | PC.NURSE ---
pt report called to [facility] at 1930, spoke to Gabby Wilson LPN for report.
== END 2025-06-01 20:20 ==
PROVIDERS: Emergency Provider General Practice; PCP Nurse Practitioner Family
DX: T42.6X2A Poisoning by other antiepileptic and sedative-hypnotic drugs, intentional self-harm, initial encounter (principal); T14.91XA Suicide attempt, initial encounter; E87.6 Hypokalemia; X58.XXXA Exposure to other specified factors, initial encounter; Z87.891 Personal history of nicotine dependence
CPT/HCPCS: 36415; 80053; 80306; 80307; 81001; 81025; 84443; 85025; 93005; 99285; J9999

== ENCOUNTER → 2025-06-17 14:57 | Outpatient (BNVA) | payer MEDICAID, SELFPAY | PROVIDERS: PCP Nurse Practitioner Family; Visit Provider Anesthesiology Pain Medicine | DX: M47.816 Spondylosis without myelopathy or radiculopathy, lumbar region (principal) | CPT/HCPCS: 64635; 64636; J1100; J9999 ==

== ENCOUNTER 2025-06-19 10:56 | Outpatient (CLI) | payer MEDICAID, SELFPAY ==
--- NOTE | 2025-06-19 11:00 | MR_ITS ---
WS: [id number] MRI BRAIN WITH AND WITHOUT CONTRAST HISTORY: R51.9 - Headache, unspecified COMPARISON: None available. TECHNIQUE: Multiplanar imaging performed through the brain with MultiHance 20 ml's IV. No acute infarcts are seen. Davidson-white matter differentiation is well preserved. No prior infarcts. There is mild bilateral hippocampal atrophy. No susceptibility artifacts or prior lacunar infarcts. Ventricles and extra-axial spaces are normal. Clivus and pituitary gland are normal. Visualized posterior fossa and brainstem are also normal. Postcontrast images are negative for masses or vascular malformations. Absent distal LEFT vertebral artery. Dural venous sinuses are normal. Paranasal sinuses: Well aerated with no significant disease. Mastoid air cells: Normal. Calvarium and scalp: Normal. MR/MR head wo/w con [id number] IMPRESSION: 1. No acute infarct, hemorrhage or enhancing mass. 2. Mild bilateral hippocampal atrophy. 3. No prior infarcts or significant small vessel disease. 4. Nonvisualization distal LEFT vertebral artery. May be hypoplastic or absent .
[2025-06-19] MEDS: gadobenate dimeglumine 20 mL vial IV (11:54)
== END 2025-06-19 10:57 | disposition home or self-care (01) ==
LOC: RAD 10:56
PROVIDERS: PCP Nurse Practitioner Family; Visit Provider Psychiatry & Neurology Neurology
DX: R51.9 Headache, unspecified (principal)
CPT/HCPCS: 70553

== ENCOUNTER → 2025-06-24 10:38 | Outpatient (BNVA) | payer MEDICAID, SELFPAY | PROVIDERS: PCP Nurse Practitioner Family; Visit Provider Internal Medicine Cardiovascular Disease | DX: R06.02 Shortness of breath (principal); R07.89 Other chest pain; E11.9 Type 2 diabetes mellitus without complications; Z79.84 Long term (current) use of oral hypoglycemic drugs; Z79.85 Long-term (current) use of injectable non-insulin antidiabetic drugs; F33.2 Major depressive disorder, recurrent severe without psychotic features; I10 Essential (primary) hypertension; I83.90 Asymptomatic varicose veins of unspecified lower extremity; F15.21 Other stimulant dependence, in remission; Z87.891 Personal history of nicotine dependence | CPT/HCPCS: 36415; 80048; 83880; 99214 ==

== ENCOUNTER → 2025-07-01 10:52 | Outpatient (BNVA) | payer MEDICAID, SELFPAY | PROVIDERS: PCP Nurse Practitioner Family; Visit Provider Nurse Practitioner Family | DX: M54.41 Lumbago with sciatica, right side (principal); M54.42 Lumbago with sciatica, left side; G89.29 Other chronic pain; M54.2 Cervicalgia | CPT/HCPCS: 99214 ==

== ENCOUNTER → 2025-07-08 13:25 | Outpatient (BNVA) | payer MEDICAID, SELFPAY | PROVIDERS: PCP Nurse Practitioner Family; Visit Provider Nurse Practitioner Family | DX: M79.10 Myalgia, unspecified site (principal); M54.2 Cervicalgia; G89.29 Other chronic pain | CPT/HCPCS: 20553; 99214; J1010; J3490 ==

== ENCOUNTER → 2025-07-23 12:51 | Outpatient (BNVA) | payer MEDICAID, SELFPAY | PROVIDERS: PCP Nurse Practitioner Family; Visit Provider Specialist | DX: G43.711 Chronic migraine without aura, intractable, with status migrainosus (principal); G31.84 Mild cognitive impairment of uncertain or unknown etiology; F43.12 Post-traumatic stress disorder, chronic; M75.21 Bicipital tendinitis, right shoulder | CPT/HCPCS: 36415; 82542; 83520; 99215 ==

== ENCOUNTER → 2025-07-24 14:06 | Outpatient (BNVA) | payer MEDICAID, SELFPAY | PROVIDERS: PCP Nurse Practitioner Family; Visit Provider Nurse Practitioner Family | DX: M79.10 Myalgia, unspecified site (principal); M54.2 Cervicalgia; G89.29 Other chronic pain; M54.41 Lumbago with sciatica, right side; M54.42 Lumbago with sciatica, left side | CPT/HCPCS: 99214 ==

== ENCOUNTER → 2025-08-12 10:05 | Outpatient (BNVA) | payer MEDICAID, SELFPAY | PROVIDERS: PCP Nurse Practitioner Family; Visit Provider Nurse Practitioner Family | DX: M47.816 Spondylosis without myelopathy or radiculopathy, lumbar region (principal); M54.2 Cervicalgia; G89.29 Other chronic pain; Z87.891 Personal history of nicotine dependence | CPT/HCPCS: 99214 ==

== ENCOUNTER → 2025-09-18 15:53 | Outpatient (BNVA) | payer MEDICAID, SELFPAY | PROVIDERS: PCP Nurse Practitioner Family; Referring Provider Nurse Practitioner Family; Visit Provider Obstetrics & Gynecology | DX: Z01.419 Encounter for gynecological examination (general) (routine) without abnormal findings (principal); N91.5 Oligomenorrhea, unspecified | CPT/HCPCS: 83001; 84146; 87624 ==

== ENCOUNTER 2025-09-24 12:59 | Outpatient (CLI) | payer MEDICAID, SELFPAY ==
--- NOTE | 2025-09-24 13:00 | MM_ITS ---
WS: [id number] BILATERAL 3D TOMOSYNTHESIS DIGITAL SCREENING MAMMOGRAPHY WITH CAD CLINICAL INFORMATION: Z12.39 - Encounter for other screening for malignant neop... HISTORY: Screening mammogram. No current complaints. COMPARISON: 2023 TECHNIQUE: Bilateral CC and MLO views. FINDINGS: Scattered fibroglandular densities bilaterally. No suspicious focal mass, asymmetry, calcifications, or architectural distortion. No evidence of malignancy. Incidental skin calcifications. MM/MM scr tomosynthesis [id number] IMPRESSION: DENSITY: There are scattered areas of fibroglandular density. BI-RADS: 2 - Benign. FOLLOW UP: 1 Year Follow-up Recommend return to annual screening mammography.
== END 2025-09-24 13:00 | disposition home or self-care (01) ==
LOC: RAD 13:00
PROVIDERS: PCP Nurse Practitioner Family; Visit Provider Obstetrics & Gynecology
DX: Z12.31 Encounter for screening mammogram for malignant neoplasm of breast (principal); R92.323 Mammographic fibroglandular density, bilateral breasts
CPT/HCPCS: 77063; 77067

== ENCOUNTER 2025-10-07 14:27 | Outpatient (CLI) | payer MEDICAID, SELFPAY ==
--- NOTE | 2025-10-07 14:30 | MR_ITS ---
WS: [id number] MRI BRAIN WITHOUT AND WITH CONTRAST, ATTENTION DIRECTED TO THE PITUITARY GLAND HISTORY: Headaches and cognitive decline. Memory loss. COMPARISON: 06/19/2025 TECHNIQUE: Diffusion-weighted imaging, axial T2 sequence, and postcontrast images in 3 planes are performed. High-resolution coronal and sagittal imaging performed through the pituitary region with and without intravenous gadolinium. Normal diffusion imaging. There is minimal cerebral and cerebellar atrophy. No prior infarct or small vessel changes. Ventricles and extra-axial spaces are normal. No inferior displacement of cerebellar tonsils. No hemorrhage. Normal appearance of the sella turcica and the clivus. Small caliber pituitary gland. Normal position of the infundibulum and optic chiasm. Tiny nonenhancing nodule measuring 2.8 mm in the RIGHT lateral pituitary gland. This is likely a small pituitary microadenoma. No encasement of the adjacent carotid arteries. No enhancing masses within the brain. Reidentified is an absent or small hypoplastic LEFT vertebral artery. Normal appearance of the orbits and globes. Sinuses are clear. No mass of the cerebellopontine angles. Normal mastoid air cells. MR/MR pituitary wo/w con* [id number] IMPRESSION: 1. Suspicious for a very small, 2.8 mm RIGHT lateral pituitary adenoma. 2. No prior infarcts or hemorrhage. 3. No significant small vessel disease.
[2025-10-07] MEDS: gadobenate dimeglumine 20 mL vial IV (15:42)
== END 2025-10-07 14:28 | disposition home or self-care (01) ==
LOC: RAD 14:27
PROVIDERS: PCP Nurse Practitioner Family; Visit Provider Obstetrics & Gynecology
DX: R79.89 Other specified abnormal findings of blood chemistry (principal)
CPT/HCPCS: 70553